=== PATIENT | female | born 1955 | race Caucasian/White ===

== ENCOUNTER → 2016-07-19 | Outpatient (CLI) | payer OTHER ==
[~2016-07-19] MED LIST: ASPI1TAB2 PO; CHOL1CHW10 PO; INSPMPHMLG; OPTIRAY 320 IV PRN; PRAV40TA2 PO
[2016-07-19 12:45] LABS: ISTAT CREATININE 0.6 mg/dl (0.6-1.3); ISTAT IONIZED CALCIUM 1.25 mmol/l (1.12-1.32)
--- NOTE | 2016-07-19 12:54 | DIAGNOSTIC IMAGING REPORT ---
CT OF THE CHEST WITH IV CONTRAST CLINICAL HISTORY: Pulmonary nodule. COMPARISON STUDY: Chest CT August 24, 2015. TECHNIQUE: Following IV administration of 92 mL of Optiray-320, helical axial images of the chest were obtained. Images were viewed in the axial, sagittal and coronal planes. IV contrast was administered without complication. CT DOSE: 176.41 mGycm FINDINGS: No enlarged axillary, mediastinal or hilar lymph nodes are present. The size of the heart is normal. There is no pericardial effusion. Central airways are patent. There is no consolidation to suggest pneumonia. Groundglass opacities reflect atelectasis. There is mild emphysema. Several pulmonary nodules are unchanged since exam of August 24, 2015 and include a 3 mm left lower lobe nodule shown image 199 of 271, a 3 mm left lower lobe nodule shown image 208 and a 4 mm perifissural nodule within the left upper lobe shown on image 148. There are no new nodules. Bony thorax and upper abdomen are unremarkable. There is a small hiatal hernia. IMPRESSION: 1. No change in several small pulmonary nodules since CT of August 24, 2015. These are likely benign but a follow up chest CT in one year to ensure stability is recommended. 2. Mild emphysema. Electronically signed by: Sam Pascual M.D. 07/19/2016 12:52 PM Dictated Date/Time: 07/19/2016 12:46 PM
== END | disposition home or self-care (01) ==
LOC: C.CTS 12:00
PROVIDERS: ATTEND Family Medicine
DX: R91.1 Solitary pulmonary nodule (principal)

== ENCOUNTER 2022-02-18 20:26 | Inpatient (IN) ==
[2022-02-18] MEDS ORDERED: ALBUT/IPRATROP 3MG/0.5MG NEB 3 ML VIAL NEB STA (21:03)
[2022-02-18] MEDS ORDERED: methylPREDNISolone 125 MG/2 ML VIAL IV STA (21:03)
--- NOTE | 2022-02-18 21:07 | Emergency Department Note ---
History of Present Illness General Chief complaint: Respiratory Problems Stated complaint: BAD COUGH,FEVER,SOB Time Seen by Provider: 02/18/22 20:54 History of Present Illness 66-year-old female presents to the ED with a chief complaint of cough that started last night. She also states that she started having shortness of breath last night. Denies any specific cold symptoms such as runny nose or fever but only a dry cough. She states that she does have some lung problems with regards to some chronic exertional dyspnea for the past 6 months. She was scheduled to have pulmonary function test tomorrow. The patient states that she quit smoking about 15 years ago. She smoked for 30 years. Denies any additional complaints this time. Home Medications Medication Instructions Recorded Confirmed Type ASPIRIN (PHIL ASPIRIN EC LOW DOSE) 81 mg PO DAILY ##0 08/19/12 History CHOLECALCIFEROL (VITAMIN D3) 2,000 inter.unit PO DAILY ##0 08/19/12 History PRAVASTATIN SODIUM 40 mg PO HS ##0 08/19/12 History Insulin Human Lispro (Insulin UD ##30 06/30/14 History Humalog Pump ) Allergies Allergy/AdvReac Type Severity Reaction Status Date / Time Penicillins Allergy Mild RASH Verified 08/24/15 11:57 lisinopril Allergy Unknown COUGH Verified 08/24/15 11:56 Past Med/Surg History Medical History COPD exacerbation Diabetes HTN (hypertension) Hyperlipidemia Ovarian cancer Pneumonia Surgical History Status post right rotator cuff repair Social History Smoking Status: Unknown if ever smoked Preferred Language: Vietnamese marital status: current occupational status: retired Feels Safe at Home: Yes Review of Systems A total of 10 systems reviewed and were otherwise negative Physical Exam Vital Signs Vital Signs - 24 hr 02/18/22 20:32 02/18/22 20:36 02/18/22 20:36 Temperature 36.9 C Temperature Source Temporal Artery Scan Pulse Rate 110 H Respiratory Rate 22 30 H Respiratory Effort / Characteristics Non-Labored Spontaneous Short of Breath SOB on Exertion Respiratory Depth Normal Blood Pressure 160/74 H Blood Pressure Mean 102 Pulse Oximetry 87 L 97 96 Oxygen Delivery Method Room Air Nasal Cannula Room Air Oxygen Flow Rate 2 Sepsis Recent Fever Within 48 Hours No Sepsis New/Unexplained Change in Mental Status N/A Sepsis Action Taken by Nursing No Action Required CONSTITUTIONAL/VITAL SIGNS: Reviewed / noted above. GENERAL: Non-toxic in appearance. INTEGUMENTARY: Warm, dry, and [place]. HEAD: Normocephalic. EYES: without scleral icterus or trauma. ENT/OROPHARYNX: clear and moist. LYMPHADENOPATHY/NECK: Is supple without lymphadenopathy or meningismus. RESPIRATORY: Diminished with some expiratory wheezes auscultation bilaterally. Mild increased work of breathing. CARDIOVASCULAR: Regular rate and rhythm. GI/ABDOMEN: Soft and nontender. No organomegaly or pulsatile mass. EXTREMITIES: Warm and well perfused. BACK: No CVA tenderness. NEUROLOGICAL: Intact without focal deficits. PSYCHIATRIC: normal affect. MUSCULOSKELETAL: Normally developed with good muscle tone. TRIAGE NURSING DOCUMENTATION REVIEWED. Course Administered Medications Discontinued Medications Albuterol (Albut/Ipratrop 3mg/0.5mg Neb 3 Ml Vial) 3 ml NEB NOW STA; Protocol Stop: 02/18/22 21:04 Last Admin: 02/18/22 21:23 Dose: 3 ml Documented By: CHARLY Methylprednisolone (Methylprednisolone 125 Mg/2 Ml Vial) 125 mg IV NOW STA Stop: 02/18/22 21:04 Last Admin: 02/18/22 21: Dose: 125 mg Documented By: CHARLY Medical Decision Making Differential Diagnosis The differential was considered includes acute myocardial infarction, acute coronary syndrome, myocarditis, pericarditis, pericardial effusions /tamponad, e sophageal perforation, pulmonary embolism, pneumonia, pneumothorax, cardiomyopathy, congestive heart, anemia , COPD/asthma exacerbation. Medical Records Attestation: I reviewed the patient's medical records. Home Medications Current Medication List: was personally reviewed by me Laboratory Data Attestation: I reviewed the patient's lab results. Result diagrams: 02/18/22 20:42 02/18/22 20:42 Lab Results 02/18/22 02/18/22 02/18/22 Range/Units 20:39 20:42 20:42 WBC 7.14 (4.8-10.8) K/ul RBC 4.81 (3.93-5.22) M/uL Hgb 13.9 (12.0-16.0) g/dl Hct 42.0 (34.1-44.9) % MCV 87.3 (80.0-100.0) fL MCH 28.9 (25.0-34.0) pg MCHC 33.1 (32.0-36.0) g/dL RDW Std Deviation 39.4 (36.4-46.3) fL RDW Coeff of Crystal 12.3 (11.5-14.5) % Plt Count 220 (130-400) K/uL MPV 9.7 (9.4-12.3) fL Immature Gran % (Auto) 0.4 % Neut % (Auto) 86.0 % Lymph % (Auto) 3.5 % [place] % (Auto) 6.7 % Eos % (Auto) 2.8 % Baso % (Auto) 0.6 % Neut # (Auto) 6.14 (1.4-6.5) K/uL Lymph # (Auto) 0.25 L (1.2-3.4) K/uL [place] # (Auto) 0.48 (0.24-0.82) K/uL Eos # (Auto) 0.20 (0-0.50) K/uL Baso # (Auto) 0.04 (0-0.2) K/uL Immature Gran # (Auto) 0.03 H (0.00-0.02) K/uL PT 10.4 (9.0-12.0) Seconds INR 1.0 (0.9-1.1) APTT 26.5 (21.0-31.0) Seconds PTT Ratio 1.0 Sodium (136-145) mmol/L Potassium (3.5-5.1) mmol/L Chloride (98-107) mmol/L Carbon Dioxide (21-32) mmol/L Anion Gap (3-11) BUN (6-23) mg/dl Creatinine (0.6-1.2) mg/dl Est Cr Clr Drug Dosing ml/min Est GFR ( Amer) ml/min Est GFR (Non-Af Amer) ml/min BUN/Creatinine Ratio (10-20) Glucose (70-99(Fasting)) mg/dl Calcium (8.5-10.1) mg/dl Magnesium (1.7-2.4) mg/dl Total Bilirubin (0.2-1.0) mg/dl AST (13-39) U/L ALT (7-52) U/L Alkaline Phosphatase (34-104) U/L Troponin I High Sens (0-14) pg/ml Total Protein (6.0-8.3) gm/dl Albumin (3.4-5.0) gm/dl Globulin (2.5-4.0) gm/dl Albumin/Globulin Ratio (0.9-2) SARS-CoV-2 (PCR) NEGATIVE (Negative) Influenza Type A (PCR) Positive A* (Neg) Influenza Type B (PCR) Negative (Neg) RSV (RT-PCR) Negative (Neg) 02/18/22 Range/Units 20:42 WBC (4.8-10.8) K/ul RBC (3.93-5.22) M/uL Hgb (12.0-16.0) g/dl Hct (34.1-44.9) % MCV (80.0-100.0) fL MCH (25.0-34.0) pg MCHC (32.0-36.0) g/dL RDW Std Deviation (36.4-46.3) fL RDW Coeff of Crystal (11.5-14.5) % Plt Count (130-400) K/uL MPV (9.4-12.3) fL Immature Gran % (Auto) % Neut % (Auto) % Lymph % (Auto) % [place] % (Auto) % Eos % (Auto) % Baso % (Auto) % Neut # (Auto) (1.4-6.5) K/uL Lymph # (Auto) (1.2-3.4) K/uL [place] # (Auto) (0.24-0.82) K/uL Eos # (Auto) (0-0.50) K/uL Baso # (Auto) (0-0.2) K/uL Immature Gran # (Auto) (0.00-0.02) K/uL PT (9.0-12.0) Seconds INR (0.9-1.1) APTT (21.0-31.0) Seconds PTT Ratio Sodium 138 (136-145) mmol/L Potassium 4.0 (3.5-5.1) mmol/L Chloride 103 (98-107) mmol/L Carbon Dioxide 26 (21-32) mmol/L Anion Gap 9 (3-11) BUN 18 (6-23) mg/dl Creatinine 0.80 (0.6-1.2) mg/dl Est Cr Clr Drug Dosing 69.0 ml/min Est GFR ( Amer) 87.8 ml/min Est GFR (Non-Af Amer) 75.8 ml/min BUN/Creatinine Ratio 22.5 H (10-20) Glucose 123 H (70-99(Fasting)) mg/dl Calcium 9.3 (8.5-10.1) mg/dl Magnesium 1.6 L (1.7-2.4) mg/dl Total Bilirubin 0.4 (0.2-1.0) mg/dl AST 28 (13-39) U/L ALT 35 (7-52) U/L Alkaline Phosphatase 132 H (34-104) U/L Troponin I High Sens 5.1 (0-14) pg/ml Total Protein 7.1 (6.0-8.3) gm/dl Albumin 4.1 (3.4-5.0) gm/dl Globulin 3.0 (2.5-4.0) gm/dl Albumin/Globulin Ratio 1.4 (0.9-2) SARS-CoV-2 (PCR) (Negative) Influenza Type A (PCR) (Neg) Influenza Type B (PCR) (Neg) RSV (RT-PCR) (Neg) Imaging Data My Impression: Chest x-ray: Per my interpretation there is a possible left lower lobe infiltrate. ECG Data Attestation: I personally reviewed and interpreted this ECG as follows: Additional Comments: Twelve-lead EKG: Per my interpretation shows a sinus tachycardia rate of 108. No ST elevation. No PVCs. Normal QTC. MDM Narrative 66-year-old female presents with a chief complaint of a cough and shortness of breath. On her exam her lungs are diminished with some end expiratory wheezing. Her sats were 87% on room air. She does not use oxygen at home. She did have pulmonary function test scheduled for tomorrow due to some exertional dyspnea that is been going on for 6 months. Blood pressure is otherwise elevated. Her heart rate was tachycardic with a heart rate of 110. Afebrile. There is a possible left lower lobe infiltrate on his chest x-ray. EKG shows a sinus rhythm. CBC and chemistry panel was unremarkable. Troponin is normal. Influenza A test is positive. The patient was treated with IV Solu-Medrol as well as a DuoNeb treatment x2. She was empirically given some IV cefepime. She requires 2 L of oxygen to maintain saturations above 88%. She will be seen by the hospitalist for further evaluation and care. Impression & Plan Acute exacerbation of COPD with asthma, Influenza A, Left lower lobe pulmonary infiltrate Discharge Plan Visit Data Chief Complaint: Respiratory Problems Stated Complaint: BAD COUGH,FEVER,SOB ED Provider: Reji Leon Discharge Problem: Acute exacerbation of COPD with asthma, Influenza A, Left lower lobe pulmonary infiltrate Patient Disposition: Being Evaluated by Hospitalist Forms Stand Alone Forms: [employer] Prescriptions Prescriptions: No Action CHOLECALCIFEROL (VITAMIN D3) 1,000 UNIT CHW 2,000 inter.unit PO DAILY Qty: 0 ASPIRIN (PHIL ASPIRIN EC LOW DOSE) 81 MG tablet 81 mg PO DAILY Qty: 0 PRAVASTATIN SODIUM 40 MG tablet 40 mg PO HS Qty: 0 Insulin Human Lispro (Insulin Humalog Pump ) PUMP UD Qty: 30 Referrals Referrals: Isabela Ayers D.O. [Primary Care Provider] -
[2022-02-18 21:22] LABS: Basophils # (auto) 0.04 K/uL (0-0.2); Basophils % (auto) 0.6 %; Eosinophils % (auto) 2.8 %; Hemoglobin 13.9 g/dl (12.0-16.0); Immature Granulocytes # (auto) 0.03 K/uL (0.00-0.02); Immature Granulocytes % (auto) 0.4 %; Lymphocytes # (auto) 0.25 K/uL (1.2-3.4); Lymphocytes % (auto) 3.5 %; Mean Corpuscular Hemoglobin 28.9 pg (25.0-34.0); Mean Corpuscular Hgb Conc 33.1 g/dL (32.0-36.0); Mean Corpuscular Volume 87.3 fL (80.0-100.0); Mean Platelet Volume 9.7 fL (9.4-12.3); Monocytes # (auto) 0.48 K/uL (0.24-0.82); Monocytes % (auto) 6.7 %; Neutrophils # (auto) 6.14 K/uL (1.4-6.5); Platelet Count 220 K/uL (130-400); RDW Coefficient of Variation 12.3 % (11.5-14.5); RDW Standard Deviation 39.4 fL (36.4-46.3); Red Blood Count 4.81 M/uL (3.93-5.22); White Blood Count 7.14 K/ul (4.8-10.8)
[2022-02-18 21:28] LABS: Albumin Globulin Ratio 1.4 (0.9-2); Albumin Level 4.1 gm/dl (3.4-5.0); BUN Creatinine Ratio 22.5 (10-20); Bilirubin,Total 0.4 mg/dl (0.2-1.0); Calcium 9.3 mg/dl (8.5-10.1); Est GFR (African American) 87.8 ml/min; Est GFR (Non-African American) 75.8 ml/min; Magnesium 1.6 mg/dl (1.7-2.4); Total Protein 7.1 gm/dl (6.0-8.3)
[2022-02-18 21:30] LABS: Troponin I High Sensitivity 5.1 pg/ml (0-14)
[2022-02-18 21:37] LABS: Partial Thromboplastin Time 26.5 Seconds (21.0-31.0); Prothrombin Time 10.4 Seconds (9.0-12.0)
[2022-02-18 21:42] LABS: Influenza B virus by PCR Negative (Neg); RSV by PCR Negative (Neg); SARS CoV2 RNA(COVID-19) Ceph NEGATIVE (Negative)
[2022-02-18 21:52] LABS: Influenza A virus by PCR Positive (Neg)
[2022-02-19] MEDS ORDERED: ALBUT/IPRATROP 3MG/0.5MG NEB 3 ML VIAL NEB STA (00:49)
[2022-02-19] MEDS ORDERED: CEFEPIME 2,000 MG/20 ML VIAL IV STA (00:50)
[2022-02-19] MEDS ORDERED: OSELTAMIVIR PHOSPHATE 75 MG CAP PO STA (01:30)
--- NOTE | 2022-02-19 01:31 | History & Physical Report ---
Date of Service February 19, 2022 Assessment & Plan (1) Influenza A: Plan: Influenza A/COPD exacerbation/with hypoxia- Received the following from the ED: Solu-Medrol 125 mg IV, DuoNeb's x2 and cefepime 2 g IV Will admit the patient on the following: Pulmicort Respules 0.5 mg inhaled twice daily, Duonebs every 4 hours while awake and every 2 hours when necessary., Tamiflu 75 mg p.o. twice daily for 5-day course, guaifenesin extended release 1200 mg p.o. twice daily No need for further antibiotics Nasal cannula oxygen, titrate to keep pulse ox 90-92% (2) COPD exacerbation: Plan: See above (3) Hyperlipidemia: Plan: Continue atorvastatin 80 mg at bedtime (4) Diabetes: Plan: The patient will continue to use her own insulin pump and Dexcom unit, but will notify nursing of any changes that she makes Check hemoglobin A1c Continue aspirin (5) Bladder spasms: Plan: Continue Myrbetriq History of Present Illness Chief Complaint: The patient presents to the emergency department after developing a cough and shortness of breath after attending a basketball game last evening. Primary Care Provider: Isabela Ayers The patient is a 66-year-old female with a past medical history including COPD, ovarian cancer, hyperlipidemia, diabetes mellitus, hypertension, pulmonary nodule. She attended a basketball game last evening, and reports developing a nonproductive irritating cough, with shortness of breath and dyspnea on exertion. Work-up in the emergency department included mild hypoxia of 80% on room air, improving to 94% on 2 L nasal cannula. Chest x-ray showed no acute findings. Laboratory work-up included a positive influenza A, glucose of 123, and magnesium of 1.6. From the emergency department, the patient received the following: Solu-Medrol 125 mg IV, DuoNeb x2, and cefepime 2 g IV. I have given the patient Tamiflu 75 mg p.o. in the ED Allergies Allergy/AdvReac Type Severity Reaction Status Date / Time Penicillins Allergy Mild RASH Verified 02/19/22 01:46 lisinopril Allergy Unknown COUGH Verified 02/19/22 01:46 Home Medications Medication Instructions Recorded Confirmed Type Myrbetriq 1 tab PO QAM 02/19/22 02/19/22 History aspirin 81 mg tablet,delayed 81 mg PO QAM 02/19/22 02/19/22 History release atorvastatin 80 mg tablet 80 mg PO HS 02/19/22 02/19/22 History cholecalciferol (vitamin D3) 125 125 mcg PO QAM 02/19/22 02/19/22 History mcg (5,000 unit) tablet (Vitamin D3) insulin aspart U-100 100 unit/mL 1 sliding scale dose subcut 02/19/22 02/19/22 History subcutaneous solution (Novolog USEASDIRECTD U-100 Insulin aspart) zinc acetate 50 mg (zinc) capsule 50 mg PO QAM 02/19/22 02/19/22 History Past Med/Surg History Medical History (Updated 02/19/22 @ 03:15 by Caleb Escobar MD) COPD exacerbation Diabetes HTN (hypertension) Hyperlipidemia Ovarian cancer Pneumonia Surgical History Status post right rotator cuff repair Social History Smoking Status: Unknown if ever smoked Preferred Language: Faroese marital status: current occupational status: retired Feels Safe at Home: Yes Review of Systems Review of Systems: The patient denies chest pain, palpitations, lower extremity swelling, sore throat, fevers, chills, sweats, weight change, fatigue, nausea, vomiting, diarrhea , constipation, abdominal pain, pelvic pain, blood in urine or stool, dysuria, urinary frequency or urgency, lightheadedness, dizziness, headache, memory loss, loss of consciousness, rash, abnormal bruising or bleeding, imbalance, focal or generalized weakness, numbness or tingling in arms or legs, generalized arthralgias or myalgias, back or neck pain, or night sweats. The review of systems is otherwise negative other than for that already noted above, and at least 10 systems have been reviewed. Physical Exam Physical Exam: The patient is awake, alert and oriented 3, well developed and well nourished, normocephalic and atraumatic, lying in bed and in no acute distress. HEENT--PERRL, EOMI, mucous membranes and oropharynx normal. Neck--supple. No JVD. No bruits. Thyroid normal, trachea midline, no adenopathy. Heart--normal S1 and S2. No murmurs, rubs or gallops. Lungs--clear bilaterally, no respiratory distress, no accessory muscle use. Abdomen--normal bowel sounds and soft. Nontender. Nondistended, no hernias or masses, no organomegaly. Extremities--no cyanosis or clubbing. No edema. Dermatologic--normal skin turgor, normal color, no abnormal lymph nodes, no rash. Neurologic--cranial nerves II through XII grossly intact. Rheumatologic--normal range of motion. Psychiatric--normal affect. Results & Data Results & Data ([facility]) Vital Signs (Past 12 Hours) Vital Signs Temp Pulse Resp BP Pulse Ox O2 Del Method O2 Flow Rate 02/18/22 20:36 30 H 96 Room Air 02/18/22 20:36 97 Nasal Cannula 2 02/18/22 20:32 36.9 C 110 H 22 160/74 H 87 L Room Air Laboratory Results Laboratory Results WBC 7.14 K/ul (4.8-10.8) 02/18/22 20:42 RBC 4.81 M/uL (3.93-5.22) 02/18/22 20:42 Hgb 13.9 g/dl (12.0-16.0) 02/18/22 20:42 Hct 42.0 % (34.1-44.9) 02/18/22 20:42 MCV 87.3 fL (80.0-100.0) 02/18/22 20:42 MCH 28.9 pg (25.0-34.0) 02/18/22 20:42 MCHC 33.1 g/dL (32.0-36.0) 02/18/22 20:42 RDW Std Deviation 39.4 fL (36.4-46.3) 02/18/22 20:42 RDW Coeff of Crystal 12.3 % (11.5-14.5) 02/18/22 20:42 Plt Count 220 K/uL (130-400) 02/18/22 20:42 MPV 9.7 fL (9.4-12.3) 02/18/22 20:42 Immature Gran % (Auto) 0.4 % 02/18/22:42 Neut % (Auto) 86.0 % 02/18/22 20:42 Lymph % (Auto) 3.5 % 02/18/22 20:42 [place] % (Auto) 6.7 % 02/18/22 20:42 Eos % (Auto) 2.8 % 02/18/22 20:42 Baso % (Auto) 0.6 % 02/18/22 20:42 Neut # (Auto) 6.14 K/uL (1.4-6.5) 02/18/22 20:42 Lymph # (Auto) 0.25 K/uL (1.2-3.4) L 02/18/22 20:42 [place] # (Auto) 0.48 K/uL (0.24-0.82) 02/18/22 20:42 Eos # (Auto) 0.20 K/uL (0-0.50) 02/18/22 20:42 Baso # (Auto) 0.04 K/uL (0-0.2) 02/18/22 20:42 Immature Gran # (Auto) 0.03 K/uL (0.00-0.02) H 02/18/22 20:42 PT 10.4 Seconds (9.0-12.0) 02/18/22 20:42 INR 1.0 (0.9-1.1) 02/18/22 20:42 APTT 26.5 Seconds (21.0-31.0) 02/18/22 20:42 PTT Ratio 1.0 02/18/22 20:42 Sodium 138 mmol/L (136-145) 02/18/22 20:42 Potassium 4.0 mmol/L (3.5-5.1) 02/18/22 20:42 Chloride 103 mmol/L (98-107) 02/18/22 20:42 Carbon Dioxide 26 mmol/L (21-32) 02/18/22 20:42 Anion Gap 9 (3-11) 02/18/22 20:42 BUN 18 mg/dl (6-23) 02/18/22 20:42 Creatinine 0.80 mg/dl (0.6-1.2) 02/18/22 20:42 Est Cr Clr Drug Dosing 69.0 ml/min 02/18/22 20:42 Est GFR ( Amer) 87.8 ml/min 02/18/22 20:42 Est GFR (Non-Af Amer) 75.8 ml/min 02/18/22 20:42 BUN/Creatinine Ratio 22.5 (10-20) H 02/18/22 20:42 Glucose 123 mg/dl (70-99(Fasting)) H 02/18/22 20:42 Calcium 9.3 mg/dl (8.5-10.1) 02/18/22 20:42 Magnesium 1.6 mg/dl (1.7-2.4) L 02/18/22 20:42 Total Bilirubin 0.4 mg/dl (0.2-1.0) 02/18/22 20:42 AST 28 U/L (13-39) 02/18/22 20:42 ALT 35 U/L (7-52) 02/18/22 20:42 Alkaline Phosphatase 132 U/L (34-104) H 02/18/22 20:42 Troponin I High Sens 5.1 pg/ml (0-14) 02/18/22 20:42 Total Protein 7.1 gm/dl (6.0-8.3) 02/18/22 20:42 Albumin 4.1 gm/dl (3.4-5.0) 02/18/22 20:42 Globulin 3.0 gm/dl (2.5-4.0) 02/18/22 20:42 Albumin/Globulin Ratio 1.4 (0.9-2) 02/18/22 20:42 SARS-CoV-2 (PCR) NEGATIVE (Negative) 02/18/22 20:39 Influenza Type A (PCR) Positive (Neg) A* 02/18/22 20:39 Influenza Type B (PCR) Negative (Neg) 02/18/22 20:39 RSV (RT-PCR) Negative (Neg) 02/18/22 20:39 Code Status & VTE Plan Code Status Full code VTE Prophylaxis Plan VTE Prophylaxis will be ordered: Yes
[2022-02-19] MEDS ORDERED: GLUCOSE 40% GEL 15 GM TUBE PO PRN (02:47)
[2022-02-19] MEDS ORDERED: ONDANSETRON INJ 2 MG/ML 2 ML VIAL IV PRN (02:47)
[2022-02-19] MEDS ORDERED: GLUCOSE 10 TAB/TUBE PO PRN (02:47)
[2022-02-19] MEDS ORDERED: ACETAMINOPHEN 325 MG TAB PO PRN (02:47)
[2022-02-19] MEDS ORDERED: DEXTROSE 50% 50 ML SYRINGE IV PRN (02:47)
[2022-02-19] MEDS ORDERED: GLUCAGON FOR INJ 1 MG VIAL SQ PRN (02:47)
[2022-02-19] MEDS ORDERED: CARBOHYDRATES FOR HYPOGLYCEMIA PO PRN (02:47)
--- NOTE | 2022-02-19 03:16 | Billing Data ---
Date of Service February 19, 2022 Coding Level of Care Code INT OBSERVATION CARE 70M LVL 3
[2022-02-19 07:09] LABS: Hemoglobin 13.4 g/dl (12.0-16.0); Mean Corpuscular Hemoglobin 28.7 pg (25.0-34.0); Mean Corpuscular Hgb Conc 32.7 g/dL (32.0-36.0); Mean Corpuscular Volume 87.8 fL (80.0-100.0); Mean Platelet Volume 9.6 fL (9.4-12.3); Platelet Count 204 K/uL (130-400); RDW Coefficient of Variation 12.3 % (11.5-14.5); RDW Standard Deviation 39.6 fL (36.4-46.3); Red Blood Count 4.67 M/uL (3.93-5.22); White Blood Count 5.54 K/ul (4.8-10.8)
[2022-02-19] MEDS: ALBUT/IPRATROP 3MG/0.5MG NEB 3 ML VIAL NEB SCH ×4 (07:26→19:34)
[2022-02-19] MEDS: BUDESONIDE 0.5 MG/2 ML VIAL (PULMICORT) NEB SCH ×2 (07:26→19:34)
[2022-02-19 07:33] LABS: Basophils # (auto) 0.01 K/uL (0-0.2); Basophils % (auto) 0.2 %; Immature Granulocytes # (auto) 0.02 K/uL (0.00-0.02); Immature Granulocytes % (auto) 0.4 %; Lymphocytes # (auto) 0.23 K/uL (1.2-3.4); Lymphocytes % (auto) 4.2 %; Monocytes # (auto) 0.08 K/uL (0.24-0.82); Monocytes % (auto) 1.4 %; Neutrophils % (auto) 93.8 %
[2022-02-19 07:52] LABS: Albumin Globulin Ratio 1.4 (0.9-2); Albumin Level 4.1 gm/dl (3.4-5.0); BUN Creatinine Ratio 22.2 (10-20); Bilirubin,Total 0.4 mg/dl (0.2-1.0); Creatinine Clr Calc Pharmacy 67.2 ml/min; Est GFR (African American) 86.5 ml/min; Est GFR (Non-African American) 74.6 ml/min; Potassium 3.7 mmol/L (3.5-5.1); Total Protein 7.1 gm/dl (6.0-8.3)
--- NOTE | 2022-02-19 08:02 | XRay Report ---
XR chest 1V portable CLINICAL HISTORY: SOB TECHNIQUE: Single frontal radiograph of the chest was obtained. Comparison: Comparison is made to rib series 08/24/2015 FINDINGS: No lines and tubes are seen. Cardiomegaly is noted. Reticular interstitial opacities are seen. No sadie dence of pleural effusion or pneumothorax. IMPRESSION: No acute chest disease. ACT 112: Negative or not required by law. Electronically signed by: Donavon Vásquez M.D. 02/19/2022 8:01 AM
[2022-02-19 08:30] LABS: Estimated Average Glucose 183 mg/dl
[2022-02-19] MEDS: ASPIRIN 81 MG ECTAB PO SCH (08:48)
[2022-02-19] MEDS: CHOLECALCIFEROL 1,000 UNITS 25 MCG TAB PO SCH (08:48)
[2022-02-19] MEDS: guaiFENesin 600 MG TABCR PO SCH ×2 (08:48→20:18)
[2022-02-19] MEDS: MAGNESIUM SULFATE / D5W 1 GM/100 ML BAG IV SCH ×2 (11:51→14:15)
[2022-02-19] MEDS: OSELTAMIVIR PHOSPHATE 75 MG CAP PO SCH ×2 (11:51→20:19)
--- NOTE | 2022-02-19 16:44 | Electrocardiogram Report ---
Test Reason : Blood Pressure : / mmHG Vent. Rate : 108 BPM Atrial Rate : 108 BPM P-R Int : 150 ms QRS Dur : 086 ms QT Int : 320 ms P-R-T Axes : 068 077 027 degrees QTc Int : 428 ms Sinus tachycardia Nonspecific ST and T wave abnormality Abnormal ECG When compared with ECG of 24-AUG-2015 11:59, Nonspecific T wave abnormality now evident in Anterior leads Confirmed by Ricardo Sheridan ([id number]) on 02/19/2022 4:44:00 PM Referred By: REFERRED SELF Confirmed By:Ricardo Sheridan
[2022-02-19] MEDS: ENOXAPARIN INJ 40 MG/0.4 ML SYR SQ SCH ×2 (17:01→18:28)
[2022-02-19] MEDS: PRAVASTATIN SOD 40 MG TAB PO SCH (20:18)
[2022-02-19] MEDS: methylPREDNISolone 40 MG in SYRINGE 0 ML IV SCH (20:19)
--- NOTE | 2022-02-19 20:39 | Hospitalist Progress Note ---
Date of Service February 19, 2022 Assessment & Plan (1) Influenza A: Plan: cont tamiflu 75mg BID x 5 days cont supportive care - bronchodilators, steroids, etc. no evidence of complicating bacterial process cont droplet precautions (2) Acute respiratory failure with hypoxia: Plan: 2nd to #1, #3 had documented O2 sats <88% at presentation, RR>25, very tachycardic to >100 stable on 2 L NC O2 this afternoon (3) COPD exacerbation: Plan: 2nd to fluA infection s/p solumedrol in ER overnight will cont solumedrol --> 40mg IV BID add mucinex cont flutter valve and pulmonary toilet (4) Hyperlipidemia: Plan: Continue atorvastatin 80 mg at bedtime (5) Diabetes: Plan: The patient will continue to use her own insulin pump and Dexcom unit, but will notify nursing of any changes that she makes hemoglobin A1c 8% (6) Bladder spasms: Plan: Continue Myrbetriq (7) Hypomagnesemia: Plan: replace IV mag repeat mag level am Plan DVT proph - lovenox 40 daily updated at bedside Admission and Anticipated Discharge Date Admission Date: February 19, 2022 Subjective patient feeling much better than yesterday still with cough ambulating, however, is not causing dyspnea she feels she can take larger breaths today denies fevers or chills did not have flu shot this year Physical Exam Physical Exam: gen - NAD mouth - MMM neck - no JVD heart - tachy, RR, s1 s2, no murmur lungs - scattered endexp wheezes b/l; good airation; no rales abd - soft NT ND BS+ ext - no edema Results & Data Results & Data ([facility]) Vital Signs (Past 12 Hours) Vital Signs Temp Pulse Resp BP Pulse Ox O2 Del Method O2 Flow Rate 02/19/22 19:50 37.4 C 124 H 18 144/68 H 98 Room Air 02/19/22 19:34 100 H 18 93 Nasal Cannula 2 02/19/22 15:52 37.1 C 99 H 17 120/57 L 94 Room Air 02/19/22 15:47 100 H 18 95 Nasal Cannula 2 02/19/22 12:18 Nasal Cannula 2 02/19/22 12:07 37.4 C 117 H 17 109/65 95 Room Air 02/19/22 10:51 107 H 18 94 Nasal Cannula 2 Laboratory Results Laboratory Results - last 24 hr 02/18/22 02/18/22 02/18/22 20:39 20:42 20:42 WBC 7.14 RBC 4.81 Hgb 13.9 Hct 42.0 MCV 87.3 MCH 28.9 MCHC 33.1 RDW Std Deviation 39.4 RDW Coeff of Crystal 12.3 Plt Count 220 MPV 9.7 Immature Gran % (Auto) 0.4 Neut % (Auto) 86.0 Lymph % (Auto) 3.5 [place] % (Auto) 6.7 Eos % (Auto) 2.8 Baso % (Auto) 0.6 Neut # (Auto) 6.14 Lymph # (Auto) 0.25 L [place] # (Auto) 0.48 Eos # (Auto) 0.20 Baso # (Auto) 0.04 Immature Gran # (Auto) 0.03 H PT 10.4 INR 1.0 APTT 26.5 PTT Ratio 1.0 Sodium Potassium Chloride Carbon Dioxide Anion Gap BUN Creatinine Est Cr Clr Drug Dosing Est GFR ( Amer) Est GFR (Non-Af Amer) BUN/Creatinine Ratio Glucose POC Glucose Estimat Average Glucose Hemoglobin A1c Calcium Magnesium Total Bilirubin AST ALT Alkaline Phosphatase Troponin I High Sens Total Protein Albumin Globulin Albumin/Globulin Ratio SARS-CoV-2 (PCR) NEGATIVE Hepatitis C Ab (EIA) Hep C Ab Signal/Cutoff Influenza Type A (PCR) Positive A* Influenza Type B (PCR) Negative RSV (RT-PCR) Negative 02/18/22 02/19/22 02/19/22 20:42 03:15 06:37 WBC 5.54 RBC 4.67 Hgb 13.4 Hct 41.0 MCV 87.8 MCH 28.7 MCHC 32.7 RDW Std Deviation 39.6 RDW Coeff of Crystal 12.3 Plt Count 204 MPV 9.6 Immature Gran % (Auto) 0.4 Neut % (Auto) 93.8 Lymph % (Auto) 4.2 [place] % (Auto) 1.4 Eos % (Auto) 0.0 Baso % (Auto) 0.2 Neut # (Auto) 5.20 Lymph # (Auto) 0.23 L [place] # (Auto) 0.08 L Eos # (Auto) 0.00 Baso # (Auto) 0.01 Immature Gran # (Auto) 0.02 PT INR APTT PTT Ratio Sodium 138 Potassium 4.0 Chloride 103 Carbon Dioxide 26 Anion Gap 9 BUN 18 Creatinine 0.80 Est Cr Clr Drug Dosing 69.0 Est GFR ( Amer) 87.8 Est GFR (Non-Af Amer) 75.8 BUN/Creatinine Ratio 22.5 H Glucose 123 H POC Glucose 251 H Estimat Average Glucose Hemoglobin A1c Calcium 9.3 Magnesium 1.6 L Total Bilirubin 0.4 AST 28 ALT 35 Alkaline Phosphatase 132 H Troponin I High Sens 5.1 Total Protein 7.1 Albumin 4.1 Globulin 3.0 Albumin/Globulin Ratio 1.4 SARS-CoV-2 (PCR) Hepatitis C Ab (EIA) Hep C Ab Signal/Cutoff Influenza Type A (PCR) Influenza Type B (PCR) RSV (RT-PCR) 02/19/22 02/19/22 02/19/22 06:37 06:37 06:37 WBC RBC Hgb Hct MCV MCH MCHC RDW Std Deviation RDW Coeff of Crystal Plt Count MPV Immature Gran % (Auto) Neut % (Auto) Lymph % (Auto) [place] % (Auto) Eos % (Auto) Baso % (Auto) Neut # (Auto) Lymph # (Auto) [place] # (Auto) Eos # (Auto) Baso # (Auto) Immature Gran # (Auto) PT INR APTT PTT Ratio Sodium 137 Potassium 3.7 Chloride 104 Carbon Dioxide 24 Anion Gap 9 BUN 18 Creatinine 0.81 Est Cr Clr Drug Dosing 67.2 Est GFR ( Amer) 86.5 Est GFR (Non-Af Amer) 74.6 BUN/Creatinine Ratio 22.2 H Glucose 167 H POC Glucose Estimat Average Glucose 183 Hemoglobin A1c 8.0 H Calcium 9.0 Magnesium Total Bilirubin 0.4 AST 35 ALT 42 Alkaline Phosphatase 127 H Troponin I High Sens Total Protein 7.1 Albumin 4.1 Globulin 3.0 Albumin/Globulin Ratio 1.4 SARS-CoV-2 (PCR) Hepatitis C Ab (EIA) Pending Hep C Ab Signal/Cutoff Pending Influenza Type A (PCR) Influenza Type B (PCR) RSV (RT-PCR) 02/19/22 07:46 WBC RBC Hgb Hct MCV MCH MCHC RDW Std Deviation RDW Coeff of Crystal Plt Count MPV Immature Gran % (Auto) Neut % (Auto) Lymph % (Auto) [place] % (Auto) Eos % (Auto) Baso % (Auto) Neut # (Auto) Lymph # (Auto) [place] # (Auto) Eos # (Auto) Baso # (Auto) Immature Gran # (Auto) PT INR APTT PTT Ratio Sodium Potassium Chloride Carbon Dioxide Anion Gap BUN Creatinine Est Cr Clr Drug Dosing Est GFR ( Amer) Est GFR (Non-Af Amer) BUN/Creatinine Ratio Glucose POC Glucose 133 H Estimat Average Glucose Hemoglobin A1c Calcium Magnesium Total Bilirubin AST ALT Alkaline Phosphatase Troponin I High Sens Total Protein Albumin Globulin Albumin/Globulin Ratio SARS-CoV-2 (PCR) Hepatitis C Ab (EIA) Hep C Ab Signal/Cutoff Influenza Type A (PCR) Influenza Type B (PCR) RSV (RT-PCR) PG Care Time/CCT Total # of Minutes Spent Total Time Spent with Patient: Total time spent is greater than 50% in coordination of care (as documented) at patient's floor/unit and/or counseling patient: Coding Level of Care Code None Diagnoses Influenza A J10.1 Acute respiratory failure with hypoxia J96.01 COPD exacerbation J44.1 Hyperlipidemia E78.5 Diabetes E11.9 Bladder spasms N32.89 Hypomagnesemia E83.42
[2022-02-20] MEDS: ALBUT/IPRATROP 3MG/0.5MG NEB 3 ML VIAL NEB SCH ×4 (07:26→19:16)
[2022-02-20] MEDS: BUDESONIDE 0.5 MG/2 ML VIAL (PULMICORT) NEB SCH ×2 (07:26→19:16)
[2022-02-20 07:44] LABS: Calcium 8.2 mg/dl (8.5-10.1); Creatinine Clr Calc Pharmacy 62.6 ml/min; Est GFR (African American) 79.3 ml/min; Est GFR (Non-African American) 68.5 ml/min; Magnesium 2.1 mg/dl (1.7-2.4); Potassium 4.6 mmol/L (3.5-5.1)
[2022-02-20] MEDS: ASPIRIN 81 MG ECTAB PO SCH (08:13)
[2022-02-20] MEDS: CHOLECALCIFEROL 1,000 UNITS 25 MCG TAB PO SCH (08:13)
[2022-02-20] MEDS: OSELTAMIVIR PHOSPHATE 75 MG CAP PO SCH ×2 (08:13→19:59)
[2022-02-20] MEDS: guaiFENesin 600 MG TABCR PO SCH ×2 (08:13→19:59)
[2022-02-20] MEDS: ENOXAPARIN INJ 40 MG/0.4 ML SYR SQ SCH (08:14)
[2022-02-20] MEDS: methylPREDNISolone 40 MG in SYRINGE 0 ML IV SCH ×2 (09:37→19:59)
[2022-02-20] MEDS ORDERED: PANTOprazole 40 MG TAB PO STA (17:25)
--- NOTE | 2022-02-20 18:25 | XRay Report ---
XR chest 2V PA/lateral CLINICAL HISTORY: fluA infection; LLL rales; pneumonia LLL? COMPARISON STUDY: Chest radiograph February 18, 2022. Chest CT July 19, 2016. FINDINGS: Lung volumes are normal. No pneumothorax or pleural effusion is present. There is no consol idation to suggest pneumonia. Linear bibasilar opacities reflect atelectasis or scarring. Mild cardio megaly is noted. Appearance of the chest is unchanged. IMPRESSION: No acute cardiopulmonary findings. ACT 112: Negative or not required by law. Electronically signed by: Sam Pascual M.D. 02/20/2022 6:24 PM
[2022-02-20] MEDS: PRAVASTATIN SOD 40 MG TAB PO SCH (19:59)
--- NOTE | 2022-02-20 20:06 | Hospitalist Progress Note ---
Date of Service February 20, 2022 Assessment & Plan (1) Influenza A: Plan: cont tamiflu 75mg BID x 5 days -- day #2 of such she is clinically improved today cont supportive care - bronchodilators, steroids, etc. no evidence of complicating bacterial process on cxr today cont droplet precautions (2) Acute respiratory failure with hypoxia: Plan: 2nd to #1, #3 had documented O2 sats <88% at presentation, RR>25, very tachycardic to >100 at rest O2 has been weaned off; but sats were 87-89% with walking keep 1 more day for IV steroids re-eval ambulatory O2 needed tomorrow (3) COPD exacerbation: Plan: 2nd to fluA infection improved cont solumedrol 40mg IV BID cont scheduled nebs qid cont flutter valve and pulmonary toilet see above re: low o2 sats w/walking keep overnight; re-eval tomorrow (4) Hyperlipidemia: Plan: Continue atorvastatin 80 mg at bedtime (5) Diabetes: Plan: The patient will continue to use her own insulin pump and Dexcom unit Adequate control at this time hemoglobin A1c 8% (6) Bladder spasms: Plan: Continue Myrbetriq (7) Hypomagnesemia: Plan: replaced resolved (8) Sinus tachycardia: Plan: 2nd to #1, #2, #3?? other? plan for echo; check LV function, PA pressure, etc (9) HTN (hypertension): Plan: chart lists this as dx, but not on meds at home most BPs are 120s and 130s trend (10) GERD (gastroesophageal reflux disease): Plan: PPI Plan DVT proph - lovenox 40 daily updated at bedside change observation to full admission status home tomorrow? Admission and Anticipated Discharge Date Admission Date: February 20, 2022 Subjective patient feeling "much better" cough, congestion, wheezing - all improved eating well low-grade fever last pm but none today tele - sinus tach, with rates 120-130 at peak I had staff walk patient in hallway - desatted to 87% and mainly stayed 88-89% HR stayed about 120 with walking patient reports having quit smoking early Review of Systems Review of Systems: gen - fevers last pm, none today; fatigue resolved cv - no cp,no tightness pulm - minimal sputum, no hemoptysis GI - no N/V Physical Exam Physical Exam: gen - NAD, looks good today mouth - MMM neck - no JVD heart - tachy, RR, s1 s2, no murmur lungs - scattered endexp wheezes b/l but improved from prior exam; good aira tion; minimal dry rales L base abd - soft NT ND BS+ ext - no edema, pulses 2+ b/l Results & Data Results & Data ([facility]) Vital Signs (Past 12 Hours) Vital Signs Temp Pulse Pulse Resp BP BP Pulse Ox 02/20/22 19:57 37.1 C 124 H 14 126/77 91 02/20/22 19:28 02/20/22 19:25 102 H 18 90 02/20/22 15:52 95 H 02/20/22 15:40 36.8 C 94 H 18 143/74 H 92 02/20/22 15:30 95 H 18 95 02/20/22 12:02 36.7 C 95 H 19 131/69 90 02/20/22 11:15 95 H 17 90 02/20/22 10:27 O2 Del Method 02/20/22 19:57 Room Air 02/20/22 19:28 Room Air 02/20/22 19:25 Room Air 02/20/22 15:52 02/20/22 15:40 Room Air 02/20/22 15:30 Room Air 02/20/22 12:02 Room Air 02/20/22 11:15 Room Air 02/20/22 10:27 Room Air Laboratory Results Laboratory Results - last 24 hr 02/19/22 02/20/22 06:37 06:26 Sodium 135 L Potassium 4.6 D Chloride 105 Carbon Dioxide 24 Anion Gap 6 BUN 27 H Creatinine 0.87 Est Cr Clr Drug Dosing 62.6 Est GFR ( Amer) 79.3 Est GFR (Non-Af Amer) 68.5 BUN/Creatinine Ratio 31.0 H Glucose 162 H Calcium 8.2 L Magnesium 2.1 Hepatitis C Ab (EIA) NON-REACTIVE Hep C Ab Signal/Cutoff 0.02 Diagnostic Findings Chest X-Ray 02/20/22 12:20 XR chest 2V PA/lateral CLINICAL HISTORY: fluA infection; LLL rales; pneumonia LLL? COMPARISON STUDY: Chest radiograph February 18, 2022. Chest CT July 19, 2016. FINDINGS: Lung volumes are normal. No pneumothorax or pleural effusion is present. There is no consolidation to suggest pneumonia. Linear bibasilar opacities reflect atelectasis or scarring. Mild cardiomegaly is noted. Appearance of the chest is unchanged. IMPRESSION: No acute cardiopulmonary findings. ACT 112: Negative or not required by law. Electronically signed by: Sam Pascual M.D. 02/20/2022 6:24 PM PG Care Time/CCT Total # of Minutes Spent Total Time Spent with Patient: Total time spent is greater than 50% in coordination of care (as documented) at patient's floor/unit and/or counseling patient: Coding Level of Care Code 44321 Subseq Hosp Care Lvl 2 Diagnoses Influenza A J10.1 Acute respiratory failure with hypoxia J96.01 COPD exacerbation J44.1 Hyperlipidemia E78.5 Diabetes E11.9 Bladder spasms N32.89 Hypomagnesemia E83.42 Sinus tachycardia R00.0 HTN (hypertension) I10 GERD (gastroesophageal reflux disease) K21.9
[2022-02-21] MEDS: BUDESONIDE 0.5 MG/2 ML VIAL (PULMICORT) NEB SCH (07:10)
[2022-02-21] MEDS: ALBUT/IPRATROP 3MG/0.5MG NEB 3 ML VIAL NEB SCH ×2 (07:10→11:41)
[2022-02-21] MEDS: OSELTAMIVIR PHOSPHATE 75 MG CAP PO SCH (08:37)
[2022-02-21] MEDS: guaiFENesin 600 MG TABCR PO SCH (08:37)
[2022-02-21] MEDS: methylPREDNISolone 40 MG in SYRINGE 0 ML IV SCH (08:37)
[2022-02-21] MEDS: ASPIRIN 81 MG ECTAB PO SCH (08:37)
[2022-02-21] MEDS: CHOLECALCIFEROL 1,000 UNITS 25 MCG TAB PO SCH (08:38)
[2022-02-21] MEDS: ENOXAPARIN INJ 40 MG/0.4 ML SYR SQ SCH (08:38)
[2022-02-21] MEDS ORDERED: PANTOprazole 40 MG TAB PO SCH (09:00)
--- NOTE | 2022-02-21 13:01 | XCELERA ---
[id number]
--- NOTE | 2022-02-21 14:15 | Discharge Summary ---
Date of Service date of admission - February 19, 2022 date of discharge - February 21, 2022 Admission HPI Per Admitting Provider The patient is a 66-year-old female with a past medical history including COPD, ovarian cancer, hyperlipidemia, diabetes mellitus, hypertension, pulmonary nodu le. She attended a basketball game last evening, and reports developing a nonproductive irritating cough, with shortness of breath and dyspnea on exertion. Work-up in the emergency department included mild hypoxia of 80% on room air, improving to 94% on 2 L nasal cannula. Chest x-ray showed no acute findings. Laboratory work-up included a positive influenza A, glucose of 123, and magnesium of 1.6. From the emergency department, the patient received the following: Solu-Medrol 125 mg IV, DuoNeb x2, and cefepime 2 g IV. I have given the patient Tamiflu 75 mg p.o. in the ED Principal Diagnosis Acute hypoxic respiratory failure 2nd to influenza A infection/bronchitis Discharge Exam gen - NAD, looks very good mouth - MMM neck - no JVD heart - borderline tachy, RR, s1 s2, no murmur lungs - minimal scattered end-exp wheezes b/l but improved from prior exams; good airation; scant dry rales L base abd - soft NT ND BS+ ext - no edema, pulses 2+ b/l Discharge Data Allergies Allergy/AdvReac Type Severity Reaction Status Date / Time Penicillins Allergy Mild RASH Verified 02/19/22 01:46 lisinopril Allergy Unknown COUGH Verified 02/19/22 01:46 Procedures Performed Echocardiogram - EF >70%; no regional wall motion abnormalities; no valvular abnormalities; normal RV size and function; no pulmonary HTN Ordered Studies Chest X-Ray 02/18/22 20:36 XR chest 1V portable CLINICAL HISTORY: SOB TECHNIQUE: Single frontal radiograph of the chest was obtained. Comparison: Comparison is made to rib series 08/24/2015 FINDINGS: No lines and tubes are seen. Cardiomegaly is noted. Reticular interstitial opacities are seen. No evidence of pleural effusion or pneumothorax. IMPRESSION: No acute chest disease. ACT 112: Negative or not required by law. Electronically signed by: Donavon Vásquez M.D. 02/19/2022 8:01 AM Chest X-Ray 02/20/22 12:20 XR chest 2V PA/lateral CLINICAL HISTORY: fluA infection; LLL rales; pneumonia LLL? COMPARISON STUDY: Chest radiograph February 18, 2022. Chest CT July 19, 2016. FINDINGS: Lung volumes are normal. No pneumothorax or pleural effusion is present. There is no consolidation to suggest pneumonia. Linear bibasilar opacities reflect atelectasis or scarring. Mild cardiomegaly is noted. Appeara nce of the chest is unchanged. IMPRESSION: No acute cardiopulmonary findings. ACT 112: Negative or not required by law. Electronically signed by: Sam Pascual M.D. 02/20/2022 6:24 PM Hospital Course (1) Influenza A: Patient was treated with Tamiflu BID, bronchodilators, IV steroids, and supportive care. She will complete 5 more doses of Tamiflu upon discharge home (5-day course in total). She clinically improved with the above measures. She did not have evidence of a complicating bacterial process on CXR x 2. Her last documented fever was on 02/19/22. In addition to Tamiflu she will complete a steroid taper at home. (2) Acute respiratory failure with hypoxia: 2nd to #1, #3 Had documented O2 sats <88% at presentation, RR>25, and was tachycardic to >100 O2 was weaned off prior to discharge On day of discharge O2 sats remained >90% in room air (3) COPD exacerbation: patient has suspected underlying COPD from chronic tobacco use. in fact she was just recently referred for formal PFTs. she had acute bronchitis 2nd to fluA infection she improved with steroids, nebs, Tamiflu, etc she will complete a prednisone taper at home she was provided a spacer device at discharge to use with albuterol MDI at home (4) Hyperlipidemia: Continue atorvastatin 80 mg at bedtime (5) Diabetes: The patient will continue to use her insulin pump and Dexcom unit at home She had adequate glycemic control while here hemoglobin A1c 8% this admission (6) Bladder spasms: Continue Myrbetriq (7) Hypomagnesemia: replaced resolved (8) Sinus tachycardia: Likely 2nd to #1, #2, or #3 or combination of those factors echocardiogram showed normal LV & RV function PA pressures were normal no other dysrhythmia (a.fib, SVT, etc) was seen while here (9) HTN (hypertension): chart lists this as a diagnosis, but not on meds at home for such. most BPs were 120s and 130s systolic while here. (10) GERD (gastroesophageal reflux disease): continue PPI Total Time Total Time Spent Total Time Spent (In Minutes): 40 Discharge Plan Discharge Items Patient Disposition: Home - Self-Care Reason For Visit: INFLUENZA A infection Discharge Diagnosis: 1. Influenza A infection 2. Acute bronchitis due to #1 Activity: As commented below Activity Comment: gradually increase your activities over the next 7-10 days Exercise/Sports: Wait until after follow-up appointment Non-emergency contact: Primary Care Provider Call non-emergency contact if: you have any medication questions, your symptoms worsen and you have a fever Follow-up/Referrals: Isabela Ayers D.O. [Primary Care Provider] - (see Dr Mcarthur within 5 days for recheck) Diet: Carb Count or DM1 Addtl Attending Provider Instructions: Mrs Rendon, You were hospitalized for influenza A infection which led to acute bronchitis. Two x-rays of your lungs did not show pneumonia. You improved nicely with IV steroids and albuterol treatments along with Tamiflu. Your oxygen levels on the day of discharge were normal both at rest and with walking. An echocardiogram of your heart was normal with good heart function and normal valve function. Your doctors in [place] are setting up pulmonary function tests for you to determine if you have underlying COPD (emphysema). Please keep those appointments. Recommendations - 1. Take tamiflu (oseltamivir) 75mg twice daily x 5 more doses, first dose TONIGHT. This is for the flu. 2. Take a prednisone taper. Start this TOMORROW, 02/22/22. This is to resolve the wheezing and to help with your cough. 3. Continue your albuterol inhaler for several more days. Use the spacer device that we gave to you. I would recommend 2 puffs via the spacer 4 times a day for 3-4 days scheduled. After that you can use the inhaler every 6 hours as needed for cough/wheeze/shortness of breath. 4. May take [id number] mucinex up to 1200mg twice daily for cough/congestion. 5. Continue your flutter valve for a few more days to help open up your lungs. 6. If come Tuesday you are feeling well, have minimal cough, and have had no more fever you are UNLIKELY contagious to others. 7. Please know that the prednisone WILL cause your blood sugars to be higher than typical. Please adjust your insulin pump accordingly with the help of your diabetes doctor, if necessary. 8. Follow-up with your family doctor this week for a recheck. Return to [facility] if - * you develop high, spiking fevers over 101 degrees * you develop worsening shortness of breath * you develop chest pains * you have worsening wheezing * any other concerns It was our pleasure to care for you at [facility]! Happy holidays, Dr Reilly Pending Studies at Discharge: No Stand-Alone Forms: [facility], Smoking Cessation Medications and DC Order Prescriptions: New oseltamivir [Tamiflu] 75 mg Capsule 75 mg PO BID Qty: 5 0RF omeprazole 20 mg capsule,delayed release(DR/EC) 20 mg PO DAILY Qty: 1 0RF albuterol sulfate [Ventolin HFA] 90 mcg/actuation HFA aerosol inhaler 2 inh inhalation Q6H PRN (Reason: shortness of breath or wheezing) Qty: 6.7 0RF prednisone 10 mg tablet 10 mg PO .daily as directed Qty: 19 0RF Rx Instructions: start 02/22: 4 tabs days 1/2, 3 tabs days 3/4, 2 tabs days 5/6, 1 tab day 7. Take w/ food. Continued atorvastatin 80 mg Tablet 80 mg PO HS zinc acetate 50 mg (zinc) Capsule 50 mg PO QAM aspirin 81 mg Tablet,Delayed Release (Dr/Ec) 81 mg PO QAM cholecalciferol (vitamin D3) [Vitamin D3] 125 mcg (5,000 unit) Tablet 125 mcg PO QAM insulin aspart U-100 [Novolog U-100 Insulin aspart] 100 unit/mL Solution 1 sliding scale dose SUBCUT USEASDIRECTD Rx Instructions: via pump Myrbetriq 1 tab PO QAM Rx Instructions: unknown dose Discharge Orders: Discharge Order (Routine); Ordered 02/21/22 Ordered By: Davon Reilly Admission Data Admit Date/Time: 02/20/22 17:21 Attending Provider: Davon Reilly Admit Provider: Caleb Escobar Primary Care Provider: Isabela Ayers Other Providers: Caleb Escobar Other Interventions: Discharge Summary Assessment (RN) Last Done: 02/21/22 14:51 Coding Level of Care Code D/C DAY MANAGEMENT >30 MINS Diagnoses Influenza A J10.1 Acute respiratory failure with hypoxia J96.01 COPD exacerbation J44.1 Hyperlipidemia E78.5 Diabetes E11.9 Bladder spasms N32.89 Hypomagnesemia E83.42 Sinus tachycardia R00.0 HTN (hypertension) I10 GERD (gastroesophageal reflux disease) K21.9
== END 2022-02-21 15:24 | disposition home or self-care (01) | DRG 193 ==
LOC: ED 20:26 → 2S 20:26 → SUATTDRO 02-19 01:29 → 2S 02-19 02:21

== ENCOUNTER 2024-03-20 22:07 | Observation (INO) ==
[2024-03-20] MEDS: methylPREDNISolone 125 MG/2 ML VIAL IV STA (22:34)
[2024-03-20] MEDS: ALBUT/IPRATROP 3MG/0.5MG NEB 3 ML VIAL NEB STA (22:34)
[2024-03-20] MEDS: ACETAMINOPHEN 1,000 MG/100 ML VIAL IV STA (22:34)
--- NOTE | 2024-03-20 22:41 | Emergency Department Note ---
History of Present Illness General Chief complaint: Shortness of Breath/Dyspnea Stated complaint: short of breath, weekness Time Seen by Provider: 03/20/24 22:16 History of Present Illness This 68-year-old female with a past medical history including COPD, ovarian cancer, hyperlipidemia, diabetes mellitus, hypertension, pulmonary nodule presents ER complaining of flulike symptoms for the past day. Patient was a cough, congestion and flulike illness with fever and chills. She took a nebulizer treatment this morning. No other meds for the fever. Patient denies chest pain, abdominal pain, vomiting, diarrhea. She was hypoxic at 88% and oxygen improved on nasal cannula. Home Medications Medication Instructions Recorded Confirmed Type aspirin 81 mg tablet,delayed 81 mg PO QAM 02/19/22 10/19/23 History release atorvastatin 80 mg tablet 80 mg PO HS 02/19/22 10/19/23 History cholecalciferol (vitamin D3) 125 125 mcg PO QAM 02/19/22 10/19/23 History mcg (5,000 unit) tablet (Vitamin D3) insulin aspart U-100 100 unit/mL 1 sliding scale dose continuous 02/19/22 10/19/23 History subcutaneous solution (Novolog subcutaneous infusion CONTINOUS U-100 Insulin aspart) zinc acetate 50 mg (zinc) capsule 50 mg PO QAM 02/19/22 10/19/23 History albuterol sulfate 90 mcg/actuation 2 inh inhalation Q6H PRN shortness 02/21/22 10/19/23 Rx aerosol inhaler (Ventolin HFA) of breath or wheezing #6.7 grams omeprazole 20 mg capsule,delayed 20 mg PO DAILY #1 cap 02/21/22 10/19/23 Rx release ipratropium 0.5 mg-albuterol 3 mg 3 ml inhalation Q6H PRN wheezing 05/21/22 10/19/23 Rx (2.5 mg base)/3 mL nebulization #90 mL soln fluticasone furoate 100 1 inh inhalation Q OTHER DAY 10/19/23 10/19/23 History mcg-vilanterol 25 mcg/dose inhalation powder (Breo Ellipta) mirabegron 25 mg tablet,extended 0 mg PO DAILY 10/19/23 10/19/23 History release 24 hr (Myrbetriq) Allergies Allergy/AdvReac Type Severity Reaction Status Date / Time Penicillins Allergy Intermediate RASH Verified 10/19/23 23:33 lisinopril AdvReac Intermediate COUGH Verified 10/19/23 23:33 Past Med/Surg History Problem List (Updated 03/21/24 @ 00:38 by Stefani Zimmer PA-C) Hypoxemia (Acute) Influenza A (Acute) Acute exacerbation of chronic obstructive airways disease (Acute) Multiple fractures of ribs of right side (Acute) Status post right rotator cuff repair Pneumonia (Acute) Ovarian cancer (Chronic) Incidental pulmonary nodule (Acute) Right shoulder strain (Acute) Medical History GERD (gastroesophageal reflux disease) Hypomagnesemia Bladder spasms Influenza A Acute exacerbation of COPD with asthma Hyperlipidemia Diabetes HTN (hypertension) Social History Smoking Status: Former smoker Tobacco Type: Cigarettes Second Hand Exposure: Yes; Do You Dip or Chew Tobacco: No; Hx Alcohol Use: No Hx Substance Use: No Preferred Language: Divehi Communication Ability: Effective Nurse Quality Required: No Beliefs That Will Affect Care: None marital status: Current Living Situation: Spouse current occupational status: retired Feels Safe at Home: Yes Assistive Devices: None Review of Systems A total of 10 systems reviewed and were otherwise negative Physical Exam Vital Signs Vital Signs - 24 hr 03/20/24 22:09 03/20/24 22:17 03/20/24 22:17 Temperature 37.7 C H Temperature Source Temporal Artery Scan Pulse Rate 108 H 109 H Pulse Rate from SpO2 Sensor Respiratory Rate 28 H Respiratory Effort / Characteristics Respiratory Depth Blood Pressure 147/59 H 137/72 Blood Pressure Mean 88 99 Pulse Oximetry 88 L 86 L Oxygen Delivery Method Room Air Room Air Oxygen Flow Rate Sepsis Recent Fever Within 48 Hours No Sepsis New/Unexplained Change in Mental Status No Sepsis Action Taken by Nursing No Action Required 03/20/24 22:17 03/20/24 22:21 03/20/24 22:21 Temperature Temperature Source Pulse Rate Pulse Rate from SpO2 Sensor Respiratory Rate Respiratory Effort / Characteristics Respiratory Depth Blood Pressure 137/72 Blood Pressure Mean 99 Pulse Oximetry Oxygen Delivery Method Nasal Cannula Nasal Cannula Oxygen Flow Rate Sepsis Recent Fever Within 48 Hours Sepsis New/Unexplained Change in Mental Status Sepsis Action Taken by Nursing 03/20/24 22:21 03/20/24 22:27 03/20/24 22:49 Temperature Temperature Source Pulse Rate 109 H Pulse Rate from SpO2 Sensor 109 H Respiratory Rate 27 H Respiratory Effort / Characteristics Non-Labored Respiratory Depth Normal Blood Pressure 128/92 Blood Pressure Mean 94 Pulse Oximetry 98 Oxygen Delivery Method Nasal Cannula Oxygen Flow Rate 2 Sepsis Recent Fever Within 48 Hours Sepsis New/Unexplained Change in Mental Status Sepsis Action Taken by Nursing 03/20/24 22:49 03/20/24 22:49 03/20/24 22:57 Temperature Temperature Source Pulse Rate 116 H Pulse Rate from SpO2 Sensor 115 H Respiratory Rate 23 Respiratory Effort / Characteristics Respiratory Depth Blood Pressure 128/92 128/92 Blood Pressure Mean 94 94 Pulse Oximetry 100 Oxygen Delivery Method Oxygen Flow Rate Sepsis Recent Fever Within 48 Hours Sepsis New/Unexplained Change in Mental Status Sepsis Action Taken by Nursing 03/20/24 23:00 03/20/24 23:00 03/20/24 23:00 Temperature Temperature Source Pulse Rate Pulse Rate from SpO2 Sensor Respiratory Rate Respiratory Effort / Characteristics Respiratory Depth Blood Pressure 131/75 131/75 131/75 Blood Pressure Mean 87 87 87 Pulse Oximetry Oxygen Delivery Method Oxygen Flow Rate Sepsis Recent Fever Within 48 Hours Sepsis New/Unexplained Change in Mental Status Sepsis Action Taken by Nursing 03/20/24 23:00 03/20/24 23:12 03/20/24 23:14 Temperature Temperature Source Pulse Rate 117 H 123 H Pulse Rate from SpO2 Sensor 117 H 122 H Respiratory Rate 26 H 22 Respiratory Effort / Characteristics Respiratory Depth Blood Pressure Blood Pressure Mean Pulse Oximetry 100 95 Oxygen Delivery Method Nasal Cannula Oxygen Flow Rate 3 Sepsis Recent Fever Within 48 Hours Sepsis New/Unexplained Change in Mental Status Sepsis Action Taken by Nursing 03/20/24 23:14 03/20/24 23:15 03/20/24 23:21 Temperature Temperature Source Pulse Rate Pulse Rate from SpO2 Sensor Respiratory Rate Respiratory Effort / Characteristics Non-Labored Non-Labored Respiratory Depth Normal Normal Blood Pressure Blood Pressure Mean Pulse Oximetry Oxygen Delivery Method Room Air Oxygen Flow Rate Sepsis Recent Fever Within 48 Hours Sepsis New/Unexplained Change in Mental Status Sepsis Action Taken by Nursing 03/20/24 23:21 03/20/24 23:30 03/20/24 23:36 Temperature Temperature Source Pulse Rate 114 H 113 H Pulse Rate from SpO2 Sensor 114 H 113 H Respiratory Rate 24 22 Respiratory Effort / Characteristics Respiratory Depth Blood Pressure 117/57 L Blood Pressure Mean 80 Pulse Oximetry 93 92 Oxygen Delivery Method Oxygen Flow Rate Sepsis Recent Fever Within 48 Hours Sepsis New/Unexplained Change in Mental Status Sepsis Action Taken by Nursing 03/21/24 00:00 03/21/24 00:03 03/21/24 00:08 Temperature Temperature Source Pulse Rate 111 H Pulse Rate from SpO2 Sensor 110 H Respiratory Rate 18 Respiratory Effort / Characteristics Respiratory Depth Blood Pressure 118/49 L Blood Pressure Mean 60 Pulse Oximetry 92 Oxygen Delivery Method Nasal Cannula Oxygen Flow Rate Sepsis Recent Fever Within 48 Hours Sepsis New/Unexplained Change in Mental Status Sepsis Action Taken by Nursing 03/21/24 00:15 03/21/24 00:21 03/21/24 00:30 Temperature Temperature Source Pulse Rate 111 H 108 H Pulse Rate from SpO2 Sensor 103 H 111 H Respiratory Rate 21 23 Respiratory Effort / Characteristics Non-Labored Respiratory Depth Normal Blood Pressure Blood Pressure Mean Pulse Oximetry 91 90 Oxygen Delivery Method Nasal Cannula Oxygen Flow Rate 4 Sepsis Recent Fever Within 48 Hours Sepsis New/Unexplained Change in Mental Status Sepsis Action Taken by Nursing VITALS: Vitals are noted on the nurse's note and reviewed by myself. Vital signs febrile and pulse ox 88% on room air which improved with nasal cannula GENERAL: Pleasant female coughing who appears sick, family present SKIN: The skin was without rashes, erythema, edema, or bruising. There is no tenting of the skin. Capillary reflex less than 2 seconds. HEAD: Normocephalic atraumatic. EARS: External auditory canals clear EYES: Pupils equal round and reactive to light and accommodation. Conjunctivae without injection, sclerae without icterus. Extraocular movements intact. NOSE: Patent, no discharge. MOUTH: Mucous membranes moist. Pharynx without erythema or exudate. Uvula midline. Airway patent. Tongue does not deviate. NECK: Supple without nuchal rigidity. No lymphadenopathy. No thyromegaly. Cervical spine is nontender. No JVD. HEART: Mildly tachycardic rate and rhythm LUNGS: Diffuse inspiratory and end expiratory wheezes. No retractions or accessory muscle use. ABDOMEN: Positive bowel sounds x 4. Normal tympanic percussion. Soft, nontender, without masses or organomegaly. Barboza sign negative. No guarding or rebound tenderness. No CVA tenderness MUSCULOSKELETAL: No muscle atrophy, erythema, or edema noted. NEURO: Patient was alert and oriented to person place and time. Normal sensation to light and sharp touch. No focal neurological deficits. Course Administered Medications Discontinued Medications Albuterol (Albut/Ipratrop 3mg/0.5mg Neb 3 Ml Vial) 3 ml NEB NOW STA; Protocol Stop: 03/20/24 22:22 Last Admin: 03/20/24 22:34 Dose: 3 ml Documented By: CHARLY Acetaminophen (Ofirmev) 1,000 mg in 100 mls @ 400 mls/hr IV NOW STA Stop: 03/20/24 22:39 Last Infusion: 03/20/24 23:12 Dose: Infused Documented By: Admin: 03/20/24 22:34 Dose: 400 mls/hr Documented By: CHARLY Methylprednisolone (Methylprednisolone 125 Mg/2 Ml Vial) 125 mg IV NOW STA Stop: 03/20/24 22:22 Last Admin: 03/20/24 22:34 Dose: 125 mg Documented By: CHARLY Medical Decision Making Medical Records Attestation: I reviewed the patient's medical records. Home Medications Current Medication List: was personally reviewed by me Laboratory Data Attestation: I reviewed the patient's lab results. 03/20/24 22:34 03/20/24 22:34 Lab Results 03/20/24 03/20/24 03/20/24 Range/Units 22:34 22:34 22:34 WBC 7.91 (4.8-10.8) K/ul RBC 4.73 (4.20-5.40) M/uL Hgb 13.6 (12.0-16.0) g/dl Hct 41.7 (37.0-47.0) % MCV 88.2 (80.0-100.0) fL MCH 28.8 (25.0-34.0) pg MCHC 32.6 (32.0-36.0) g/dL RDW Std Deviation 40.9 (36.4-46.3) fL RDW Coeff of Crystal 12.6 (11.5-14.5) % Plt Count 183 (130-400) K/uL MPV 10.1 (9.4-12.4) fL Immature Gran % (Auto) 0.4 % Neut % (Auto) 88.8 % Lymph % (Auto) 3.5 % Bledsoe % (Auto) 4.3 % Eos % (Auto) 2.5 % Baso % (Auto) 0.5 % Neut # (Auto) 7.02 H (1.40-6.50) K/uL Lymph # (Auto) 0.28 L (1.20-3.40) K/uL Bledsoe # (Auto) 0.34 (0.11-0.59) K/uL Eos # (Auto) 0.20 (0.00-0.50) K/uL Baso # (Auto) 0.04 (0.00-0.20) K/uL Immature Gran # (Auto) 0.03 (0.01-0.20) K/uL PT 10.5 (9.0-12.0) Seconds INR 1.0 (0.9-1.1) APTT 23 (21-31) Seconds PTT Ratio 0.9 VBG pH 7.40 (7.36-7.41) VBG pCO2 45 (38-50) mmHg VBG pO2 37 mmHg VBG HCO3 28 mmol/L VBG O2 Saturation < 60.0 % VBG Base Excess 2.5 mEq/L Sodium Cancelled 137 Potassium Cancelled 4.1 Chloride Cancelled Carbon Dioxide Anion Gap BUN Creatinine Est Cr Clr Drug Dosing eGFR BUN/Creatinine Ratio Glucose Lactate (0.4-2.0) mmol/L Calcium Magnesium (1.7-2.4) mg/dl Total Bilirubin (0.2-1.0) mg/dl Direct Bilirubin (0-0.2) mg/dl AST (13-39) U/L ALT (7-52) U/L Alkaline Phosphatase (34-104) U/L Troponin I High Sens (0-14) pg/ml B-Natriuretic Peptide (0-100) pg/ml Total Protein (6.0-8.3) gm/dl Albumin (3.4-5.0) gm/dl Globulin Albumin/Globulin Ratio Procalcitonin (0-0.5) ng/ml Adenovirus (PCR) (NotDetected) B. pertussis DNA (PCR) (NotDetected) B.parapertussis DNA PCR (NotDetected) C. pneumoniae DNA (PCR) (NotDetected) Coronavirus OC43 (PCR) (NotDetected) Coronavirus HKU1 (PCR) (NotDetected) Coronavirus 229E (PCR) (NotDetected) SARS-CoV-2 (PCR) (NotDetected) Coronavirus NL63 (PCR) (NotDetected) Human Metapneumovir PCR (NotDetected) Influenza A (H3) PCR (NotDetected) Influenza Type B (PCR) (NotDetected) M. pneumoniae (PCR) (NotDetected) Parainfluenza 1 (PCR) (NotDetected) Parainfluenza 2 (PCR) (NotDetected) Parainfluenza 3 (PCR) (NotDetected) Parainfluenza 4 (PCR) (NotDetected) RSV (PCR) (NotDetected) Entero/Rhino (PCR) (NotDetected) 03/20/24 03/20/24 03/20/24 Range/Units 22:34 22:34 22:34 WBC (4.8-10.8) K/ul RBC (4.20-5.40) M/uL Hgb (12.0-16.0) g/dl Hct (37.0-47.0) % MCV (80.0-100.0) fL MCH (25.0-34.0) pg MCHC (32.0-36.0) g/dL RDW Std Deviation (36.4-46.3) fL RDW Coeff of Crystal (11.5-14.5) % Plt Count (130-400) K/uL MPV (9.4-12.4) fL Immature Gran % (Auto) % Neut % (Auto) % Lymph % (Auto) % Bledsoe % (Auto) % Eos % (Auto) % Baso % (Auto) % Neut # (Auto) (1.40-6.50) K/uL Lymph # (Auto) (1.20-3.40) K/uL Bledsoe # (Auto) (0.11-0.59) K/uL Eos # (Auto) (0.00-0.50) K/uL Baso # (Auto) (0.00-0.20) K/uL Immature Gran # (Auto) (0.01-0.20) K/uL PT (9.0-12.0) Seconds INR (0.9-1.1) APTT (21-31) Seconds PTT Ratio VBG pH (7.36-7.41) VBG pCO2 (38-50) mmHg VBG pO2 mmHg VBG HCO3 mmol/L VBG O2 Saturation % VBG Base Excess mEq/L Sodium Potassium Chloride 101 Carbon Dioxide Cancelled 24 Anion Gap Cancelled 12 H BUN Cancelled Creatinine Est Cr Clr Drug Dosing eGFR BUN/Creatinine Ratio Glucose Lactate (0.4-2.0) mmol/L Calcium Magnesium (1.7-2.4) mg/dl Total Bilirubin (0.2-1.0) mg/dl Direct Bilirubin (0-0.2) mg/dl AST (13-39) U/L ALT (7-52) U/L Alkaline Phosphatase (34-104) U/L Troponin I High Sens (0-14) pg/ml B-Natriuretic Peptide (0-100) pg/ml Total Protein (6.0-8.3) gm/dl Albumin (3.4-5.0) gm/dl Globulin Albumin/Globulin Ratio Procalcitonin (0-0.5) ng/ml Adenovirus (PCR) (NotDetected) B. pertussis DNA (PCR) (NotDetected) B.parapertussis DNA PCR (NotDetected) C. pneumoniae DNA (PCR) (NotDetected) Coronavirus OC43 (PCR) (NotDetected) Coronavirus HKU1 (PCR) (NotDetected) Coronavirus 229E (PCR) (NotDetected) SARS-CoV-2 (PCR) (NotDetected) Coronavirus NL63 (PCR) (NotDetected) Human Metapneumovir PCR (NotDetected) Influenza A (H3) PCR (NotDetected) Influenza Type B (PCR) (NotDetected) M. pneumoniae (PCR) (NotDetected) Parainfluenza 1 (PCR) (NotDetected) Parainfluenza 2 (PCR) (NotDetected) Parainfluenza 3 (PCR) (NotDetected) Parainfluenza 4 (PCR) (NotDetected) RSV (PCR) (NotDetected) Entero/Rhino (PCR) (NotDetected) 03/20/24 03/20/24 03/20/24 Range/Units 22:34 22:34 22:34 WBC (4.8-10.8) K/ul RBC (4.20-5.40) M/uL Hgb (12.0-16.0) g/dl Hct (37.0-47.0) % MCV (80.0-100.0) fL MCH (25.0-34.0) pg MCHC (32.0-36.0) g/dL RDW Std Deviation (36.4-46.3) fL RDW Coeff of Crystal (11.5-14.5) % Plt Count (130-400) K/uL MPV (9.4-12.4) fL Immature Gran % (Auto) % Neut % (Auto) % Lymph % (Auto) % Bledsoe % (Auto) % Eos % (Auto) % Baso % (Auto) % Neut # (Auto) (1.40-6.50) K/uL Lymph # (Auto) (1.20-3.40) K/uL Bledsoe # (Auto) (0.11-0.59) K/uL Eos # (Auto) (0.00-0.50) K/uL Baso # (Auto) (0.00-0.20) K/uL Immature Gran # (Auto) (0.01-0.20) K/uL PT (9.0-12.0) Seconds INR (0.9-1.1) APTT (21-31) Seconds PTT Ratio VBG pH (7.36-7.41) VBG pCO2 (38-50) mmHg VBG pO2 mmHg VBG HCO3 mmol/L VBG O2 Saturation % VBG Base Excess mEq/L Sodium Potassium Chloride Carbon Dioxide Anion Gap BUN 23 Creatinine Cancelled 1.00 Est Cr Clr Drug Dosing Cancelled 51.9 eGFR Cancelled BUN/Creatinine Ratio Glucose Lactate (0.4-2.0) mmol/L Calcium Magnesium (1.7-2.4) mg/dl Total Bilirubin (0.2-1.0) mg/dl Direct Bilirubin (0-0.2) mg/dl AST (13-39) U/L ALT (7-52) U/L Alkaline Phosphatase (34-104) U/L Troponin I High Sens (0-14) pg/ml B-Natriuretic Peptide (0-100) pg/ml Total Protein (6.0-8.3) gm/dl Albumin (3.4-5.0) gm/dl Globulin Albumin/Globulin Ratio Procalcitonin (0-0.5) ng/ml Adenovirus (PCR) (NotDetected) B. pertussis DNA (PCR) (NotDetected) B.parapertussis DNA PCR (NotDetected) C. pneumoniae DNA (PCR) (NotDetected) Coronavirus OC43 (PCR) (NotDetected) Coronavirus HKU1 (PCR) (NotDetected) Coronavirus 229E (PCR) (NotDetected) SARS-CoV-2 (PCR) (NotDetected) Coronavirus NL63 (PCR) (NotDetected) Human Metapneumovir PCR (NotDetected) Influenza A (H3) PCR (NotDetected) Influenza Type B (PCR) (NotDetected) M. pneumoniae (PCR) (NotDetected) Parainfluenza 1 (PCR) (NotDetected) Parainfluenza 2 (PCR) (NotDetected) Parainfluenza 3 (PCR) (NotDetected) Parainfluenza 4 (PCR) (NotDetected) RSV (PCR) (NotDetected) Entero/Rhino (PCR) (NotDetected) 03/20/24 03/20/24 03/20/24 Range/Units 22:34 22:34 22:34 WBC (4.8-10.8) K/ul RBC (4.20-5.40) M/uL Hgb (12.0-16.0) g/dl Hct (37.0-47.0) % MCV (80.0-100.0) fL MCH (25.0-34.0) pg MCHC (32.0-36.0) g/dL RDW Std Deviation (36.4-46.3) fL RDW Coeff of Crystal (11.5-14.5) % Plt Count (130-400) K/uL MPV (9.4-12.4) fL Immature Gran % (Auto) % Neut % (Auto) % Lymph % (Auto) % Bledsoe % (Auto) % Eos % (Auto) % Baso % (Auto) % Neut # (Auto) (1.40-6.50) K/uL Lymph # (Auto) (1.20-3.40) K/uL Bledsoe # (Auto) (0.11-0.59) K/uL Eos # (Auto) (0.00-0.50) K/uL Baso # (Auto) (0.00-0.20) K/uL Immature Gran # (Auto) (0.01-0.20) K/uL PT (9.0-12.0) Seconds INR (0.9-1.1) APTT (21-31) Seconds PTT Ratio VBG pH (7.36-7.41) VBG pCO2 (38-50) mmHg VBG pO2 mmHg VBG HCO3 mmol/L VBG O2 Saturation % VBG Base Excess mEq/L Sodium Potassium Chloride Carbon Dioxide Anion Gap BUN Creatinine Est Cr Clr Drug Dosing eGFR 60.61 BUN/Creatinine Ratio Cancelled 23.0 H Glucose Cancelled 179 H Lactate 1.9 (0.4-2.0) mmol/L Calcium Cancelled Magnesium (1.7-2.4) mg/dl Total Bilirubin (0.2-1.0) mg/dl Direct Bilirubin (0-0.2) mg/dl AST (13-39) U/L ALT (7-52) U/L Alkaline Phosphatase (34-104) U/L Troponin I High Sens (0-14) pg/ml B-Natriuretic Peptide (0-100) pg/ml Total Protein (6.0-8.3) gm/dl Albumin (3.4-5.0) gm/dl Globulin Albumin/Globulin Ratio Procalcitonin (0-0.5) ng/ml Adenovirus (PCR) (NotDetected) B. pertussis DNA (PCR) (NotDetected) B.parapertussis DNA PCR (NotDetected) C. pneumoniae DNA (PCR) (NotDetected) Coronavirus OC43 (PCR) (NotDetected) Coronavirus HKU1 (PCR) (NotDetected) Coronavirus 229E (PCR) (NotDetected) SARS-CoV-2 (PCR) (NotDetected) Coronavirus NL63 (PCR) (NotDetected) Human Metapneumovir PCR (NotDetected) Influenza A (H3) PCR (NotDetected) Influenza Type B (PCR) (NotDetected) M. pneumoniae (PCR) (NotDetected) Parainfluenza 1 (PCR) (NotDetected) Parainfluenza 2 (PCR) (NotDetected) Parainfluenza 3 (PCR) (NotDetected) Parainfluenza 4 (PCR) (NotDetected) RSV (PCR) (NotDetected) Entero/Rhino (PCR) (NotDetected) 03/20/24 03/20/24 03/20/24 Range/Units 22:34 22:34 22:34 WBC (4.8-10.8) K/ul RBC (4.20-5.40) M/uL Hgb (12.0-16.0) g/dl Hct (37.0-47.0) % MCV (80.0-100.0) fL MCH (25.0-34.0) pg MCHC (32.0-36.0) g/dL RDW Std Deviation (36.4-46.3) fL RDW Coeff of Crystal (11.5-14.5) % Plt Count (130-400) K/uL MPV (9.4-12.4) fL Immature Gran % (Auto) % Neut % (Auto) % Lymph % (Auto) % Bledsoe % (Auto) % Eos % (Auto) % Baso % (Auto) % Neut # (Auto) (1.40-6.50) K/uL Lymph # (Auto) (1.20-3.40) K/uL Bledsoe # (Auto) (0.11-0.59) K/uL Eos # (Auto) (0.00-0.50) K/uL Baso # (Auto) (0.00-0.20) K/uL Immature Gran # (Auto) (0.01-0.20) K/uL PT (9.0-12.0) Seconds INR (0.9-1.1) APTT (21-31) Seconds PTT Ratio VBG pH (7.36-7.41) VBG pCO2 (38-50) mmHg VBG pO2 mmHg VBG HCO3 mmol/L VBG O2 Saturation % VBG Base Excess mEq/L Sodium Potassium Chloride Carbon Dioxide Anion Gap BUN Creatinine Est Cr Clr Drug Dosing eGFR BUN/Creatinine Ratio Glucose Lactate (0.4-2.0) mmol/L Calcium 9.3 Magnesium 1.7 (1.7-2.4) mg/dl Total Bilirubin 0.5 0.5 (0.2-1.0) mg/dl Direct Bilirubin 0.1 (0-0.2) mg/dl AST 38 39 (13-39) U/L ALT 48 (7-52) U/L Alkaline Phosphatase (34-104) U/L Troponin I High Sens (0-14) pg/ml B-Natriuretic Peptide (0-100) pg/ml Total Protein (6.0-8.3) gm/dl Albumin (3.4-5.0) gm/dl Globulin Albumin/Globulin Ratio Procalcitonin (0-0.5) ng/ml Adenovirus (PCR) (NotDetected) B. pertussis DNA (PCR) (NotDetected) B.parapertussis DNA PCR (NotDetected) C. pneumoniae DNA (PCR) (NotDetected) Coronavirus OC43 (PCR) (NotDetected) Coronavirus HKU1 (PCR) (NotDetected) Coronavirus 229E (PCR) (NotDetected) SARS-CoV-2 (PCR) (NotDetected) Coronavirus NL63 (PCR) (NotDetected) Human Metapneumovir PCR (NotDetected) Influenza A (H3) PCR (NotDetected) Influenza Type B (PCR) (NotDetected) M. pneumoniae (PCR) (NotDetected) Parainfluenza 1 (PCR) (NotDetected) Parainfluenza 2 (PCR) (NotDetected) Parainfluenza 3 (PCR) (NotDetected) Parainfluenza 4 (PCR) (NotDetected) RSV (PCR) (NotDetected) Entero/Rhino (PCR) (NotDetected) 03/20/24 03/20/24 03/20/24 Range/Units 22:34 22:34 22:34 WBC (4.8-10.8) K/ul RBC (4.20-5.40) M/uL Hgb (12.0-16.0) g/dl Hct (37.0-47.0) % MCV (80.0-100.0) fL MCH (25.0-34.0) pg MCHC (32.0-36.0) g/dL RDW Std Deviation (36.4-46.3) fL RDW Coeff of Crystal (11.5-14.5) % Plt Count (130-400) K/uL MPV (9.4-12.4) fL Immature Gran % (Auto) % Neut % (Auto) % Lymph % (Auto) % Bledsoe % (Auto) % Eos % (Auto) % Baso % (Auto) % Neut # (Auto) (1.40-6.50) K/uL Lymph # (Auto) (1.20-3.40) K/uL Bledsoe # (Auto) (0.11-0.59) K/uL Eos # (Auto) (0.00-0.50) K/uL Baso # (Auto) (0.00-0.20) K/uL Immature Gran # (Auto) (0.01-0.20) K/uL PT (9.0-12.0) Seconds INR (0.9-1.1) APTT (21-31) Seconds PTT Ratio VBG pH (7.36-7.41) VBG pCO2 (38-50) mmHg VBG pO2 mmHg VBG HCO3 mmol/L VBG O2 Saturation % VBG Base Excess mEq/L Sodium Potassium Chloride Carbon Dioxide Anion Gap BUN Creatinine Est Cr Clr Drug Dosing eGFR BUN/Creatinine Ratio Glucose Lactate (0.4-2.0) mmol/L Calcium Magnesium (1.7-2.4) mg/dl Total Bilirubin (0.2-1.0) mg/dl Direct Bilirubin (0-0.2) mg/dl AST (13-39) U/L ALT 48 (7-52) U/L Alkaline Phosphatase 128 H 127 H (34-104) U/L Troponin I High Sens 14.6 H (0-14) pg/ml B-Natriuretic Peptide (0-100) pg/ml Total Protein 7.5 7.5 (6.0-8.3) gm/dl Albumin 4.4 (3.4-5.0) gm/dl Globulin Albumin/Globulin Ratio Procalcitonin (0-0.5) ng/ml Adenovirus (PCR) (NotDetected) B. pertussis DNA (PCR) (NotDetected) B.parapertussis DNA PCR (NotDetected) C. pneumoniae DNA (PCR) (NotDetected) Coronavirus OC43 (PCR) (NotDetected) Coronavirus HKU1 (PCR) (NotDetected) Coronavirus 229E (PCR) (NotDetected) SARS-CoV-2 (PCR) (NotDetected) Coronavirus NL63 (PCR) (NotDetected) Human Metapneumovir PCR (NotDetected) Influenza A (H3) PCR (NotDetected) Influenza Type B (PCR) (NotDetected) M. pneumoniae (PCR) (NotDetected) Parainfluenza 1 (PCR) (NotDetected) Parainfluenza 2 (PCR) (NotDetected) Parainfluenza 3 (PCR) (NotDetected) Parainfluenza 4 (PCR) (NotDetected) RSV (PCR) (NotDetected) Entero/Rhino (PCR) (NotDetected) 03/20/24 03/20/24 03/20/24 Range/Units 22:34 22:34 22:34 WBC (4.8-10.8) K/ul RBC (4.20-5.40) M/uL Hgb (12.0-16.0) g/dl Hct (37.0-47.0) % MCV (80.0-100.0) fL MCH (25.0-34.0) pg MCHC (32.0-36.0) g/dL RDW Std Deviation (36.4-46.3) fL RDW Coeff of Crystal (11.5-14.5) % Plt Count (130-400) K/uL MPV (9.4-12.4) fL Immature Gran % (Auto) % Neut % (Auto) % Lymph % (Auto) % Bledsoe % (Auto) % Eos % (Auto) % Baso % (Auto) % Neut # (Auto) (1.40-6.50) K/uL Lymph # (Auto) (1.20-3.40) K/uL Bledsoe # (Auto) (0.11-0.59) K/uL Eos # (Auto) (0.00-0.50) K/uL Baso # (Auto) (0.00-0.20) K/uL Immature Gran # (Auto) (0.01-0.20) K/uL PT (9.0-12.0) Seconds INR (0.9-1.1) APTT (21-31) Seconds PTT Ratio VBG pH (7.36-7.41) VBG pCO2 (38-50) mmHg VBG pO2 mmHg VBG HCO3 mmol/L VBG O2 Saturation % VBG Base Excess mEq/L Sodium Potassium Chloride Carbon Dioxide Anion Gap BUN Creatinine Est Cr Clr Drug Dosing eGFR BUN/Creatinine Ratio Glucose Lactate (0.4-2.0) mmol/L Calcium Magnesium (1.7-2.4) mg/dl Total Bilirubin (0.2-1.0) mg/dl Direct Bilirubin (0-0.2) mg/dl AST (13-39) U/L ALT (7-52) U/L Alkaline Phosphatase (34-104) U/L Troponin I High Sens (0-14) pg/ml B-Natriuretic Peptide (0-100) pg/ml Total Protein (6.0-8.3) gm/dl Albumin 4.6 (3.4-5.0) gm/dl Globulin Cancelled 2.9 Albumin/Globulin Ratio Cancelled 1.6 Procalcitonin 0.09 (0-0.5) ng/ml Adenovirus (PCR) (NotDetected) B. pertussis DNA (PCR) (NotDetected) B.parapertussis DNA PCR (NotDetected) C. pneumoniae DNA (PCR) (NotDetected) Coronavirus OC43 (PCR) (NotDetected) Coronavirus HKU1 (PCR) (NotDetected) Coronavirus 229E (PCR) (NotDetected) SARS-CoV-2 (PCR) (NotDetected) Coronavirus NL63 (PCR) (NotDetected) Human Metapneumovir PCR (NotDetected) Influenza A (H3) PCR (NotDetected) Influenza Type B (PCR) (NotDetected) M. pneumoniae (PCR) (NotDetected) Parainfluenza 1 (PCR) (NotDetected) Parainfluenza 2 (PCR) (NotDetected) Parainfluenza 3 (PCR) (NotDetected) Parainfluenza 4 (PCR) (NotDetected) RSV (PCR) (NotDetected) Entero/Rhino (PCR) (NotDetected) 03/20/24 03/20/24 Range/Units 23:12 23:20 WBC (4.8-10.8) K/ul RBC (4.20-5.40) M/uL Hgb (12.0-16.0) g/dl Hct (37.0-47.0) % MCV (80.0-100.0) fL MCH (25.0-34.0) pg MCHC (32.0-36.0) g/dL RDW Std Deviation (36.4-46.3) fL RDW Coeff of Crystal (11.5-14.5) % Plt Count (130-400) K/uL MPV (9.4-12.4) fL Immature Gran % (Auto) % Neut % (Auto) % Lymph % (Auto) % Bledsoe % (Auto) % Eos % (Auto) % Baso % (Auto) % Neut # (Auto) (1.40-6.50) K/uL Lymph # (Auto) (1.20-3.40) K/uL Bledsoe # (Auto) (0.11-0.59) K/uL Eos # (Auto) (0.00-0.50) K/uL Baso # (Auto) (0.00-0.20) K/uL Immature Gran # (Auto) (0.01-0.20) K/uL PT (9.0-12.0) Seconds INR (0.9-1.1) APTT (21-31) Seconds PTT Ratio VBG pH (7.36-7.41) VBG pCO2 (38-50) mmHg VBG pO2 mmHg VBG HCO3 mmol/L VBG O2 Saturation % VBG Base Excess mEq/L Sodium Potassium Chloride Carbon Dioxide Anion Gap BUN Creatinine Est Cr Clr Drug Dosing eGFR BUN/Creatinine Ratio Glucose Lactate (0.4-2.0) mmol/L Calcium Magnesium (1.7-2.4) mg/dl Total Bilirubin (0.2-1.0) mg/dl Direct Bilirubin (0-0.2) mg/dl AST (13-39) U/L ALT (7-52) U/L Alkaline Phosphatase (34-104) U/L Troponin I High Sens (0-14) pg/ml B-Natriuretic Peptide 40 (0-100) pg/ml Total Protein (6.0-8.3) gm/dl Albumin (3.4-5.0) gm/dl Globulin Albumin/Globulin Ratio Procalcitonin (0-0.5) ng/ml Adenovirus (PCR) Not Detected (NotDetected) B. pertussis DNA (PCR) Not Detected (NotDetected) B.parapertussis DNA PCR Not Detected (NotDetected) C. pneumoniae DNA (PCR) Not Detected (NotDetected) Coronavirus OC43 (PCR) Not Detected (NotDetected) Coronavirus HKU1 (PCR) Not Detected (NotDetected) Coronavirus 229E (PCR) Not Detected (NotDetected) SARS-CoV-2 (PCR) Not Detected (NotDetected) Coronavirus NL63 (PCR) Not Detected (NotDetected) Human Metapneumovir PCR Not Detected (NotDetected) Influenza A (H3) PCR DETECTED A (NotDetected) Influenza Type B (PCR) Not Detected (NotDetected) M. pneumoniae (PCR) Not Detected (NotDetected) Parainfluenza 1 (PCR) Not Detected (NotDetected) Parainfluenza 2 (PCR) Not Detected (NotDetected) Parainfluenza 3 (PCR) Not Detected (NotDetected) Parainfluenza 4 (PCR) Not Detected (NotDetected) RSV (PCR) Not Detected (NotDetected) Entero/Rhino (PCR) Not Detected (NotDetected) Imaging Data Attestation: I personally reviewed and interpreted this imaging study as follows: Radiologist's Impression: Chest X-Ray 03/20/24 22:19 Exam(s): XR CXR 1 VIEW EXAM: XR Chest, 1 View CLINICAL HISTORY: Reason for exam: SOB, CP. TECHNIQUE: Frontal view of the chest. COMPARISON: No relevant prior studies available. FINDINGS: Lungs: Mildly prominent interstitial markings throughout both lungs suggesting mild emphysema, similar to previous. No new infiltrates are identified. Pleural space: Unremarkable. No pneumothorax. Heart: Borderline mild cardiomegaly. No evidence of edema. Probable 5 cm hiatal hernia projecting behind the heart. Mediastinum: Unremarkable. Normal mediastinal contour. Bones/joints: Unremarkable. No acute fracture. Upper abdomen: Unremarkable as visualized. No pneumoperitoneum under the diaphragm. IMPRESSION: 1. Mildly prominent interstitial markings throughout both lungs suggesting mild emphysema, similar to previous. No new infiltrates are identified. 2. Borderline mild cardiomegaly. No evidence of edema. 3. Probable 5 cm hiatal hernia projecting behind the heart. Electronically signed by: Lito Anaya MD 03/20/24 23:35 PM MDM Narrative Prior records/ancillary studies reviewed. Triage Nursing notes reviewed. Additional history obtained from the family. The patient's history was concerning for respiratory difficulties. Differential diagnosis: Etiologies such as infections, reactive airway disease, pneumonia, pneumothorax, COPD, CHF, cardiac ischemia, pulmonary embolism, musculoskeletal, gastrointestinal, as well as others were entertained. Physical examination: As above. ER treatment provided: An order was placed for continuous cardiac monitoring. The monitor shows a rate of 60-1 20 with a sinus rhythm per my interpretation. Nebulizer, Solu-Medrol, Tylenol, Tamiflu On reassessment the patient felt better. Diagnostic interpretation by me: The electrocardiogram was ordered for SOB. ECG: Normal sinus, poor baseline, no acute ST-T wave changes, prolonged QTc, rate of 110. Impression sinus tachycardia independently interpreted by myself The labs Independently Interpreted by myself revealed positive influenza A Blood cultures pending Minimally elevated troponin and repeat was ordered. Most likely type II No worrisome leukocytosis Imaging studies: Chest x-ray with no acute consolidation, pneumothorax or free air per my independent termination. Consultation: A consultation was placed with the hospitalist. The case was discussed and diagnostics were reviewed. The patient was evaluated in the ER for further treatment. This appears to be consistent with influenza A with COPD exacerbation who is hypoxic. Patient was medicated as above. Medicine was consulted and the case discussed she will be admitted to the medical service. Patient is agreeable. She did improve with the medicines as above. She did still require oxygen so she will be admitted. By the evaluation outlined above emergent etiologies such as CHF, cardiac ischemia, pulmonary embolism, reactive airway disease, pneumonia, pneumothorax, musculoskeletal, serious bacterial infections, as well as others were deemed relatively unlikely. The pt informed about the findings as listed above. All questions were answered and pleased with the treatment. The chart was completed utilizing [employer] Speech voice recognition software. Grammatical errors, random word insertions, pronoun errors, and incomplete sentences are an occassional consequence of this system due to software limitations, ambient noise, and hardware issues. Any formal questions or concerns about the content, text, or information contained within the body of this dictation should be directly addressed to the physician licensed loan officer assistant for clarification. Impression & Plan Acute exacerbation of chronic obstructive airways disease, Influenza A, Hypoxemia Discharge Plan Visit Data Chief Complaint: Shortness of Breath/Dyspnea Stated Complaint: short of breath, weekness ED Provider: Tony Contreras ED Midlevel Provider: Stefani Zimmer Discharge Problem: Acute exacerbation of chronic obstructive airways disease, Influenza A, Hypoxemia Patient Disposition: Admitted As Inpatient Condition: Fair Forms Stand Alone Forms: [facility] Prescriptions Prescriptions: No Action atorvastatin 80 mg Tablet 80 mg PO HS zinc acetate 50 mg (zinc) Capsule 50 mg PO QAM aspirin 81 mg Tablet,Delayed Release (Dr/Ec) 81 mg PO QAM cholecalciferol (vitamin D3) [Vitamin D3] 125 mcg (5,000 unit) Tablet 125 mcg PO QAM insulin aspart U-100 [Novolog U-100 Insulin aspart] 100 unit/mL Solution 1 sliding scale dose continuous subcutaneous infusion CONTINOUS Rx Instructions: via pump omeprazole 20 mg capsule,delayed release(DR/EC) 20 mg PO DAILY Qty: 1 0RF albuterol sulfate [Ventolin HFA] 90 mcg/actuation HFA aerosol inhaler 2 inh inhalation Q6H PRN (Reason: shortness of breath or wheezing) Qty: 6.7 0RF ipratropium-albuterol 0.5 mg-3 mg(2.5 mg base)/3 mL solution for nebulization 3 ml inhalation Q6H PRN (Reason: wheezing) Qty: 90 0RF mirabegron [Myrbetriq] 25 mg Tablet Extended Release 24 Hr 0 mg PO DAILY Rx Instructions: PT UNSURE OF STRENGTH, UNABLE TO VERIFY fluticasone furoate-vilanterol [Breo Ellipta] 100-25 mcg/dose Blister With Device 1 inh INHALATION Q OTHER DAY Referrals Referrals: Isabela Ayers D.O. [Primary Care Provider] -
[2024-03-20 22:47] LABS: Base Excess VBG 2.5 mEq/L; HCO3 VBG 28 mmol/L; Oxygen Saturation VBG < 60.0 %; PCO2 VBG 45 mmHg (38-50); PO2 VBG 37 mmHg
[2024-03-20 23:02] LABS: Basophils # (auto) 0.04 K/uL (0.00-0.20); Basophils % (auto) 0.5 %; Eosinophils % (auto) 2.5 %; Hematocrit (blood only) 41.7 % (37.0-47.0); Hemoglobin 13.6 g/dl (12.0-16.0); Immature Granulocytes # (auto) 0.03 K/uL (0.01-0.20); Immature Granulocytes % (auto) 0.4 %; Lymphocytes # (auto) 0.28 K/uL (1.20-3.40); Lymphocytes % (auto) 3.5 %; Mean Corpuscular Hemoglobin 28.8 pg (25.0-34.0); Mean Corpuscular Hgb Conc 32.6 g/dL (32.0-36.0); Mean Corpuscular Volume 88.2 fL (80.0-100.0); Mean Platelet Volume 10.1 fL (9.4-12.4); Monocytes # (auto) 0.34 K/uL (0.11-0.59); Monocytes % (auto) 4.3 %; Neutrophils # (auto) 7.02 K/uL (1.40-6.50); Neutrophils % (auto) 88.8 %; Platelet Count 183 K/uL (130-400); RDW Coefficient of Variation 12.6 % (11.5-14.5); RDW Standard Deviation 40.9 fL (36.4-46.3); Red Blood Count 4.73 M/uL (4.20-5.40); White Blood Count 7.91 K/ul (4.8-10.8)
[2024-03-20 23:12] LABS: Albumin Level 4.4 gm/dl (3.4-5.0); Bilirubin Direct 0.1 mg/dl (0-0.2); Bilirubin,Total 0.5 mg/dl (0.2-1.0); Magnesium 1.7 mg/dl (1.7-2.4); Total Protein 7.5 gm/dl (6.0-8.3)
[2024-03-20 23:18] LABS: Troponin I High Sensitivity 14.6 pg/ml (0-14)
[2024-03-20 23:31] LABS: Partial Thromboplastin Ratio 0.9; Partial Thromboplastin Time 23 Seconds (21-31); Prothrombin Time 10.5 Seconds (9.0-12.0)
--- NOTE | 2024-03-20 23:36 | XRay Report ---
Exam(s): XR CXR 1 VIEW EXAM: XR Chest, 1 View CLINICAL HISTORY: Reason for exam: SOB, CP. TECHNIQUE: Frontal view of the chest. COMPARISON: No relevant prior studies available. FINDINGS: Lungs: Mildly prominent interstitial markings throughout both lungs suggesting mild emphysema, similar to previous. No new infiltrates are identified. Pleural space: Unremarkable. No pneumothorax. Heart: Borderline mild cardiomegaly. No evidence of edema. Probable 5 cm hiatal hernia projecting behind the heart. Mediastinum: Unremarkable. Normal mediastinal contour. Bones/joints: Unremarkable. No acute fracture. Upper abdomen: Unremarkable as visualized. No pneumoperitoneum under the diaphragm. IMPRESSION: 1. Mildly prominent interstitial markings throughout both lungs suggesting mild emphysema, similar to previous. No new infiltrates are identified. 2. Borderline mild cardiomegaly. No evidence of edema. 3. Probable 5 cm hiatal hernia projecting behind the heart. Electronically signed by: Lito Anaya MD 03/20/24 23:35 PM
--- NOTE | 2024-03-20 23:42 | Emergency Department Note ---
ED Visit Note I was consulted by the Advanced Practice Provider, Stefani Zimmer PA-C. I personally made/approved the management plan and take responsibility for the patient management. I performed a substantive portion of the visit. This includes the aspects of: -MDM: Patient with respiratory symptoms and mild fever. No pneumonia on x-ray. Bio[employer] testing performed. Patient is influenza positive. -I independently interpreted the following studies: Chest x-ray. Findings: A chest x-ray was performed and revealed no pneumothorax, effusion, infiltrate, pulmonary edema, free air under the diaphragm, or wide mediastinum. Impression: No acute disease. .
[2024-03-21 00:03] LABS: Albumin Level 4.6 gm/dl (3.4-5.0); Bilirubin,Total 0.5 mg/dl (0.2-1.0); Calcium 9.3 mg/dl (8.6-10.3); Potassium 4.1 mmol/L (3.5-5.1)
[2024-03-21 00:09] LABS: Albumin Globulin Ratio 1.6 (0.9-2); Creatinine Clr Calc Pharmacy 51.9 ml/min; Globulin 2.9 gm/dl (2.5-4.0); Total Protein 7.5 gm/dl (6.0-8.3)
[2024-03-21 00:18] LABS: Adenovirus PCR Not Detected (NotDetected); Bordetella parapertussis PCR Not Detected (NotDetected); Bordetella pertussis PCR Not Detected (NotDetected); Chlamydia pneumoniae PCR Not Detected (NotDetected); Coronavirus 229E PCR Not Detected (NotDetected); Coronavirus CoV-2 (COVID19)PCR Not Detected (NotDetected); Coronavirus HKU1 PCR Not Detected (NotDetected); Coronavirus NL63 PCR Not Detected (NotDetected); Coronavirus OC43PCR Not Detected (NotDetected); Human Metapneumovirus PCR Not Detected (NotDetected); Influenza A (H3) PCR DETECTED (NotDetected); Influenza B PCR Not Detected (NotDetected); Mycoplasma pneumoniae PCR Not Detected (NotDetected); Parainfluenza Virus 1 PCR Not Detected (NotDetected); Parainfluenza Virus 2 PCR Not Detected (NotDetected); Parainfluenza Virus 3 PCR Not Detected (NotDetected); Parainfluenza Virus 4 PCR Not Detected (NotDetected); Respiratory Syncytial VirusPCR Not Detected (NotDetected); Rhinovirus/Enterovirus PCR Not Detected (NotDetected)
--- NOTE | 2024-03-21 01:40 | History & Physical Report ---
Date of Service March 21, 2024 Assessment & Plan (1) Acute hypoxic respiratory failure: (2) Influenza A: Plan 68-year-old female PMHx COPD, ovarian cancer, GERD, HTN, HLD, and DM presenting to ED for shortness of breath. 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 CXR w/o evidence of new infiltrates. CBC + procal grossly WNL. Presence of wheezing on exam, requiring O2 and found to have Flu A. Admission for hypoxic, COPD exacerbation, and management of flu A. #Acute hypoxic respiratory failure/Influenza A/COPD exacerbation H/o COPD w/ previous exacerbations requiring admission. CXR without evidence of new infiltrates; CBC grossly WNL and procalcitonin WNL. Requiring O2 via NC, none at baseline. - FV+ IC; No O2 at baseline; O2 via NC prn; wean as patient tolerates - Methylprednisolone 40mg IV BID; Tamiflu BID x 5 days total - Duonebs q4hr; budesonide + formoterol nebs BID - Doxycycline for COPD exacerbation management- Prolonged QT on initial EKG - Droplet precautions #Elevated troponin No current chest pain, palpitations, or symptoms concerning of such. - Troponin 14.6 on admission, pending repeat; EKG w/o ischemic changes - Likely 2/2 demand #Diabetes mellitus H/o DM, insulin dependent; Dexcom in place. - A1c 2021 @ 8.0%; no repeat at time of admission - Defer SSI at time of admission but will monitor and adjust as appropriate - BSG ACHS #HLD- Atorvastatin #Bladder spasms- Myrbetriq #GERD- Omeprazole Alkaline phosphatase elevated at time of admission; appears to be chronic finding for patinet per prior labs; patient not having any additional symptoms suggestive of acute changes at time of admission. Dispo: Admit med/tele VTE prophylaxis: Lovenox This document was dictated utilizing [employer]. Please excuse any grammatical errors that may be secondary to use of this software. Admission and Anticipated Discharge Date Admission Date: 03/21/2024 History of Present Illness Chief Complaint: SOB Primary Care Provider: Isabela Ayers 68-year-old female PMHx COPD, ovarian cancer, GERD, HTN, HLD, and DM presenting to ED for shortness of breath. 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 States that she has a productive cough, but is unsure what the quality of sputum looks like. Has felt feverish, but declines actually taking her temperature. Did use nebulizer treatment morning prior to arrival but did not find much relief. Sick contacts include her grandchildren. CBC revealed no acute findings and CMP was grossly WNL with exception of alkaline phosphatase at 127. Procalcitonin was 0.09, BNP was 40, and CXR revealed mildly prominent interstitial markings throughout both lungs suggestive of mild emphysema as well as a possible 5 cm hiatal hernia. Otherwise VBG's are stable, patient has anion gap of 12, and troponin was elevated at 14.6 and pending repeat but with EKG revealing no ischemic changes patient denying any chest pain. Patient was provided with Tamiflu, methylprednisolone, acetaminophen, and albuterol in the ED. Please see Dr. Anaya's attestation for adjustments/additions to treatment plan. Allergies Allergy/AdvReac Type Severity Reaction Status Date / Time Penicillins Allergy Intermediate RASH Verified 03/21/24 00:47 lisinopril AdvReac Intermediate COUGH Verified 03/21/24 00:47 Home Medications Medication Instructions Recorded Confirmed Type aspirin 81 mg tablet,delayed 81 mg PO QAM 02/19/22 03/21/24 History release atorvastatin 80 mg tablet 80 mg PO HS 02/19/22 03/21/24 History cholecalciferol (vitamin D3) 125 125 mcg PO QAM 02/19/22 03/21/24 History mcg (5,000 unit) tablet (Vitamin D3) insulin aspart U-100 100 unit/mL 1 sliding scale dose continuous 02/19/22 03/21/24 History subcutaneous solution (Novolog subcutaneous infusion CONTINOUS U-100 Insulin aspart) zinc acetate 50 mg (zinc) capsule 50 mg PO QAM 02/19/22 03/21/24 History albuterol sulfate 90 mcg/actuation 2 inh inhalation Q6H PRN shortness 02/21/22 03/21/24 Rx aerosol inhaler (Ventolin HFA) of breath or wheezing #6.7 grams omeprazole 20 mg capsule,delayed 20 mg PO DAILY #1 cap 02/21/22 03/21/24 Rx release ipratropium 0.5 mg-albuterol 3 mg 3 ml inhalation Q6H PRN wheezing 05/21/22 03/21/24 Rx (2.5 mg base)/3 mL nebulization #90 mL soln fluticasone furoate 100 1 inh inhalation Q OTHER DAY 10/19/23 03/21/24 History mcg-vilanterol 25 mcg/dose inhalation powder (Breo Ellipta) mirabegron 25 mg tablet,extended 25 mg PO DAILY 10/19/23 03/21/24 History release 24 hr (Myrbetriq) Past Med/Surg History Problem List Acute hypoxic respiratory failure Hypoxemia (Acute) Influenza A (Acute) Acute exacerbation of chronic obstructive airways disease (Acute) Multiple fractures of ribs of right side (Acute) Status post right rotator cuff repair Pneumonia (Acute) Ovarian cancer (Chronic) Incidental pulmonary nodule (Acute) Right shoulder strain (Acute) Medical History GERD (gastroesophageal reflux disease) Hypomagnesemia Bladder spasms Influenza A Acute exacerbation of COPD with asthma Hyperlipidemia Diabetes HTN (hypertension) Social History Smoking Status: Former smoker Tobacco Type: Cigarettes Second Hand Exposure: Yes; Do You Dip or Chew Tobacco: No; Hx Alcohol Use: No Hx Substance Use: No Preferred Language: Haitian Communication Ability: Effective 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 No cyanosis Head: Normocephalic, atraumatic Eyes: PERRL, conjunctivae clear, sclera non-icteric ENT: External ear and ear canal without swelling; nose atraumatic; good dentitio n, tongue normal appearance Neck: Supple, no LAD Cardio: Tachycardia, regular rhythm, no M/G/R, S1 and S2 normal Resp: No respiratory distress, expiratory inspiratory wheezing throughout all lung cuevas otherwise lungs CTA without rales or rhonchi Abdomen: Soft, symmetric, nontender; No visible lesions or scars; no distention; No masses or hepatosplenomegaly; Bowel sounds normoactive MSK: No deformities, full ROM throughout; pulses palpable and equal; no edema. Neuro: Awake, alert; CN grossly intact Psych: Appropriate mood and affect; good judgement and insight. Results & Data Results & Data Vital Signs (Past 12 Hours) Vital Signs Temp Pulse Resp BP Pulse Ox O2 Del Method O2 Flow Rate 03/21/24 01:24 98 H 19 92 03/21/24 01:12 102 H 21 90 03/21/24 01:00 103 H 22 92 03/21/24 01:00 119/55 L 03/21/24 01:00 119/55 L 03/21/24 01:00 119/55 L 03/21/24 00:51 102 H 20 92 03/21/24 00:48 105 H 19 92 03/21/24 00:33 105 H 21 92 03/21/24 00:30 116/53 L 03/21/24 00:21 108 H 23 90 Nasal Cannula 4 03/21/24 00:15 111 H 21 91 03/21/24 00:08 Nasal Cannula 03/21/24 00:03 111 H 18 92 03/21/24 00:00 118/49 L 03/20/24 23:36 113 H 22 92 03/20/24 23:30 117/57 L 03/20/24 23:21 114 H 24 93 03/20/24 23:21 Room Air 03/20/24 23:14 Nasal Cannula 3 03/20/24 23:12 123 H 22 95 03/20/24 23:00 117 H 26 H 100 03/20/24 23:00 131/75 03/20/24 23:00 131/75 03/20/24 23:00 131/75 03/20/24 22:57 116 H 23 100 03/20/24 22:49 128/92 03/20/24 22:49 128/92 03/20/24 22:49 128/92 03/20/24 22:27 109 H 27 H 98 Nasal Cannula 2 03/20/24 22:21 Nasal Cannula 03/20/24 22:21 Nasal Cannula 03/20/24 22:17 137/72 03/20/24 22:17 137/72 86 L Room Air 03/20/24 22:17 109 H 03/20/24 22:09 37.7 C H 108 H 28 H 147/59 H 88 L Room Air Laboratory Results 03/20/24 23:12 Aerobic Blood Culture - Pending Blood Anaerobic Blood Culture - Pending 03/20/24 22:34 Aerobic Blood Culture - Pending Blood Anaerobic Blood Culture - Pending 03/20/24 03/20/24 03/20/24 23:20 23:12 22:34 WBC RBC Hgb Hct MCV MCH MCHC RDW Std Deviation RDW Coeff of Crystal Plt Count MPV Immature Gran % (Auto) Neut % (Auto) Lymph % (Auto) Gila % (Auto) Eos % (Auto) Baso % (Auto) Neut # (Auto) Lymph # (Auto) Gila # (Auto) Eos # (Auto) Baso # (Auto) Immature Gran # (Auto) PT INR APTT PTT Ratio VBG pH VBG pCO2 VBG pO2 VBG HCO3 VBG O2 Saturation VBG Base Excess Sodium Potassium Chloride Carbon Dioxide Anion Gap BUN Creatinine Est Cr Clr Drug Dosing eGFR BUN/Creatinine Ratio Glucose Lactate Calcium Magnesium Total Bilirubin Direct Bilirubin AST ALT Alkaline Phosphatase Troponin I High Sens B-Natriuretic Peptide 40 Total Protein Albumin Globulin Albumin/Globulin Ratio 1.6 Procalcitonin 0.09 Adenovirus (PCR) Not Detected B. pertussis DNA (PCR) Not Detected B.parapertussis DNA PCR Not Detected C. pneumoniae DNA (PCR) Not Detected Coronavirus OC43 (PCR) Not Detected Coronavirus HKU1 (PCR) Not Detected Coronavirus 229E (PCR) Not Detected SARS-CoV-2 (PCR) Not Detected Coronavirus NL63 (PCR) Not Detected Human Metapneumovir PCR Not Detected Influenza A (H3) PCR DETECTED A Influenza Type B (PCR) Not Detected M. pneumoniae (PCR) Not Detected Parainfluenza 1 (PCR) Not Detected Parainfluenza 2 (PCR) Not Detected Parainfluenza 3 (PCR) Not Detected Parainfluenza 4 (PCR) Not Detected RSV (PCR) Not Detected Entero/Rhino (PCR) Not Detected 03/20/24 03/20/24 03/20/24 22:34 22:34 22:34 WBC RBC Hgb Hct MCV MCH MCHC RDW Std Deviation RDW Coeff of Crystal Plt Count MPV Immature Gran % (Auto) Neut % (Auto) Lymph % (Auto) Gila % (Auto) Eos % (Auto) Baso % (Auto) Neut # (Auto) Lymph # (Auto) Gila # (Auto) Eos # (Auto) Baso # (Auto) Immature Gran # (Auto) PT INR APTT PTT Ratio VBG pH VBG pCO2 VBG pO2 VBG HCO3 VBG O2 Saturation VBG Base Excess Sodium Potassium Chloride Carbon Dioxide Anion Gap BUN Creatinine Est Cr Clr Drug Dosing eGFR BUN/Creatinine Ratio Glucose Lactate Calcium Magnesium Total Bilirubin Direct Bilirubin AST ALT Alkaline Phosphatase Troponin I High Sens B-Natriuretic Peptide Total Protein 7.5 Albumin 4.6 4.4 Globulin 2.9 Cancelled Albumin/Globulin Ratio Cancelled Procalcitonin Adenovirus (PCR) B. pertussis DNA (PCR) B.parapertussis DNA PCR C. pneumoniae DNA (PCR) Coronavirus OC43 (PCR) Coronavirus HKU1 (PCR) Coronavirus 229E (PCR) SARS-CoV-2 (PCR) Coronavirus NL63 (PCR) Human Metapneumovir PCR Influenza A (H3) PCR Influenza Type B (PCR) M. pneumoniae (PCR) Parainfluenza 1 (PCR) Parainfluenza 2 (PCR) Parainfluenza 3 (PCR) Parainfluenza 4 (PCR) RSV (PCR) Entero/Rhino (PCR) 03/20/24 03/20/24 03/20/24 22:34 22:34 22:34 WBC RBC Hgb Hct MCV MCH MCHC RDW Std Deviation RDW Coeff of Crystal Plt Count MPV Immature Gran % (Auto) Neut % (Auto) Lymph % (Auto) Gila % (Auto) Eos % (Auto) Baso % (Auto) Neut # (Auto) Lymph # (Auto) Gila # (Auto) Eos # (Auto) Baso # (Auto) Immature Gran # (Auto) PT INR APTT PTT Ratio VBG pH VBG pCO2 VBG pO2 VBG HCO3 VBG O2 Saturation VBG Base Excess Sodium Potassium Chloride Carbon Dioxide Anion Gap BUN Creatinine Est Cr Clr Drug Dosing eGFR BUN/Creatinine Ratio Glucose Lactate Calcium Magnesium Total Bilirubin Direct Bilirubin AST 39 ALT 48 48 Alkaline Phosphatase 127 H 128 H Troponin I High Sens 14.6 H B-Natriuretic Peptide Total Protein 7.5 Albumin Globulin Albumin/Globulin Ratio Procalcitonin Adenovirus (PCR) B. pertussis DNA (PCR) B.parapertussis DNA PCR C. pneumoniae DNA (PCR) Coronavirus OC43 (PCR) Coronavirus HKU1 (PCR) Coronavirus 229E (PCR) SARS-CoV-2 (PCR) Coronavirus NL63 (PCR) Human Metapneumovir PCR Influenza A (H3) PCR Influenza Type B (PCR) M. pneumoniae (PCR) Parainfluenza 1 (PCR) Parainfluenza 2 (PCR) Parainfluenza 3 (PCR) Parainfluenza 4 (PCR) RSV (PCR) Entero/Rhino (PCR) 03/20/24 03/20/24 03/20/24 22:34 22:34 22:34 WBC RBC Hgb Hct MCV MCH MCHC RDW Std Deviation RDW Coeff of Crystal Plt Count MPV Immature Gran % (Auto) Neut % (Auto) Lymph % (Auto) Gila % (Auto) Eos % (Auto) Baso % (Auto) Neut # (Auto) Lymph # (Auto) Gila # (Auto) Eos # (Auto) Baso # (Auto) Immature Gran # (Auto) PT INR APTT PTT Ratio VBG pH VBG pCO2 VBG pO2 VBG HCO3 VBG O2 Saturation VBG Base Excess Sodium Potassium Chloride Carbon Dioxide Anion Gap BUN Creatinine Est Cr Clr Drug Dosing eGFR BUN/Creatinine Ratio Glucose 179 H Lactate 1.9 Calcium 9.3 Cancelled Magnesium 1.7 Total Bilirubin 0.5 0.5 Direct Bilirubin 0.1 AST 38 ALT Alkaline Phosphatase Troponin I High Sens B-Natriuretic Peptide Total Protein Albumin Globulin Albumin/Globulin Ratio Procalcitonin Adenovirus (PCR) B. pertussis DNA (PCR) B.parapertussis DNA PCR C. pneumoniae DNA (PCR) Coronavirus OC43 (PCR) Coronavirus HKU1 (PCR) Coronavirus 229E (PCR) SARS-CoV-2 (PCR) Coronavirus NL63 (PCR) Human Metapneumovir PCR Influenza A (H3) PCR Influenza Type B (PCR) M. pneumoniae (PCR) Parainfluenza 1 (PCR) Parainfluenza 2 (PCR) Parainfluenza 3 (PCR) Parainfluenza 4 (PCR) RSV (PCR) Entero/Rhino (PCR) 03/20/24 03/20/24 03/20/24 22:34 22:34 22:34 WBC RBC Hgb Hct MCV MCH MCHC RDW Std Deviation RDW Coeff of Crystal Plt Count MPV Immature Gran % (Auto) Neut % (Auto) Lymph % (Auto) Gila % (Auto) Eos % (Auto) Baso % (Auto) Neut # (Auto) Lymph # (Auto) Gila # (Auto) Eos # (Auto) Baso # (Auto) Immature Gran # (Auto) PT INR APTT PTT Ratio VBG pH VBG pCO2 VBG pO2 VBG HCO3 VBG O2 Saturation VBG Base Excess Sodium Potassium Chloride Carbon Dioxide Anion Gap BUN Creatinine Est Cr Clr Drug Dosing 51.9 eGFR 60.61 Cancelled BUN/Creatinine Ratio 23.0 H Cancelled Glucose Cancelled Lactate Calcium Magnesium Total Bilirubin Direct Bilirubin AST ALT Alkaline Phosphatase Troponin I High Sens B-Natriuretic Peptide Total Protein Albumin Globulin Albumin/Globulin Ratio Procalcitonin Adenovirus (PCR) B. pertussis DNA (PCR) B.parapertussis DNA PCR C. pneumoniae DNA (PCR) Coronavirus OC43 (PCR) Coronavirus HKU1 (PCR) Coronavirus 229E (PCR) SARS-CoV-2 (PCR) Coronavirus NL63 (PCR) Human Metapneumovir PCR Influenza A (H3) PCR Influenza Type B (PCR) M. pneumoniae (PCR) Parainfluenza 1 (PCR) Parainfluenza 2 (PCR) Parainfluenza 3 (PCR) Parainfluenza 4 (PCR) RSV (PCR) Entero/Rhino (PCR) 03/20/24 03/20/24 03/20/24 22:34 22:34 22:34 WBC RBC Hgb Hct MCV MCH MCHC RDW Std Deviation RDW Coeff of Crystal Plt Count MPV Immature Gran % (Auto) Neut % (Auto) Lymph % (Auto) Gila % (Auto) Eos % (Auto) Baso % (Auto) Neut # (Auto) Lymph # (Auto) Gila # (Auto) Eos # (Auto) Baso # (Auto) Immature Gran # (Auto) PT INR APTT PTT Ratio VBG pH VBG pCO2 VBG pO2 VBG HCO3 VBG O2 Saturation VBG Base Excess Sodium Potassium Chloride Carbon Dioxide Anion Gap 12 H BUN 23 Cancelled Creatinine 1.00 Cancelled Est Cr Clr Drug Dosing Cancelled eGFR BUN/Creatinine Ratio Glucose Lactate Calcium Magnesium Total Bilirubin Direct Bilirubin AST ALT Alkaline Phosphatase Troponin I High Sens B-Natriuretic Peptide Total Protein Albumin Globulin Albumin/Globulin Ratio Procalcitonin Adenovirus (PCR) B. pertussis DNA (PCR) B.parapertussis DNA PCR C. pneumoniae DNA (PCR) Coronavirus OC43 (PCR) Coronavirus HKU1 (PCR) Coronavirus 229E (PCR) SARS-CoV-2 (PCR) Coronavirus NL63 (PCR) Human Metapneumovir PCR Influenza A (H3) PCR Influenza Type B (PCR) M. pneumoniae (PCR) Parainfluenza 1 (PCR) Parainfluenza 2 (PCR) Parainfluenza 3 (PCR) Parainfluenza 4 (PCR) RSV (PCR) Entero/Rhino (PCR) 03/20/24 03/20/24 03/20/24 22:34 22:34 22:34 WBC RBC Hgb Hct MCV MCH MCHC RDW Std Deviation RDW Coeff of Crystal Plt Count MPV Immature Gran % (Auto) Neut % (Auto) Lymph % (Auto) Gila % (Auto) Eos % (Auto) Baso % (Auto) Neut # (Auto) Lymph # (Auto) Gila # (Auto) Eos # (Auto) Baso # (Auto) Immature Gran # (Auto) PT INR APTT PTT Ratio VBG pH VBG pCO2 VBG pO2 VBG HCO3 VBG O2 Saturation VBG Base Excess Sodium Potassium 4.1 Chloride 101 Cancelled Carbon Dioxide 24 Cancelled Anion Gap Cancelled BUN Creatinine Est Cr Clr Drug Dosing eGFR BUN/Creatinine Ratio Glucose Lactate Calcium Magnesium Total Bilirubin Direct Bilirubin AST ALT Alkaline Phosphatase Troponin I High Sens B-Natriuretic Peptide Total Protein Albumin Globulin Albumin/Globulin Ratio Procalcitonin Adenovirus (PCR) B. pertussis DNA (PCR) B.parapertussis DNA PCR C. pneumoniae DNA (PCR) Coronavirus OC43 (PCR) Coronavirus HKU1 (PCR) Coronavirus 229E (PCR) SARS-CoV-2 (PCR) Coronavirus NL63 (PCR) Human Metapneumovir PCR Influenza A (H3) PCR Influenza Type B (PCR) M. pneumoniae (PCR) Parainfluenza 1 (PCR) Parainfluenza 2 (PCR) Parainfluenza 3 (PCR) Parainfluenza 4 (PCR) RSV (PCR) Entero/Rhino (PCR) 03/20/24 03/20/24 22:34 22:34 WBC 7.91 RBC 4.73 Hgb 13.6 Hct 41.7 MCV 88.2 MCH 28.8 MCHC 32.6 RDW Std Deviation 40.9 RDW Coeff of Crystal 12.6 Plt Count 183 MPV 10.1 Immature Gran % (Auto) 0.4 Neut % (Auto) 88.8 Lymph % (Auto) 3.5 Gila % (Auto) 4.3 Eos % (Auto) 2.5 Baso % (Auto) 0.5 Neut # (Auto) 7.02 H Lymph # (Auto) 0.28 L Gila # (Auto) 0.34 Eos # (Auto) 0.20 Baso # (Auto) 0.04 Immature Gran # (Auto) 0.03 PT 10.5 INR 1.0 APTT 23 PTT Ratio 0.9 VBG pH 7.40 VBG pCO2 45 VBG pO2 37 VBG HCO3 28 VBG O2 Saturation < 60.0 VBG Base Excess 2.5 Sodium 137 Cancelled Potassium Cancelled Chloride Carbon Dioxide Anion Gap BUN Creatinine Est Cr Clr Drug Dosing eGFR BUN/Creatinine Ratio Glucose Lactate Calcium Magnesium Total Bilirubin Direct Bilirubin AST ALT Alkaline Phosphatase Troponin I High Sens B-Natriuretic Peptide Total Protein Albumin Globulin Albumin/Globulin Ratio Procalcitonin Adenovirus (PCR) B. pertussis DNA (PCR) B.parapertussis DNA PCR C. pneumoniae DNA (PCR) Coronavirus OC43 (PCR) Coronavirus HKU1 (PCR) Coronavirus 229E (PCR) SARS-CoV-2 (PCR) Coronavirus NL63 (PCR) Human Metapneumovir PCR Influenza A (H3) PCR Influenza Type B (PCR) M. pneumoniae (PCR) Parainfluenza 1 (PCR) Parainfluenza 2 (PCR) Parainfluenza 3 (PCR) Parainfluenza 4 (PCR) RSV (PCR) Entero/Rhino (PCR) Diagnostic Findings Chest X-Ray 03/20/24 22:19 Exam(s): XR CXR 1 VIEW EXAM: XR Chest, 1 View CLINICAL HISTORY: Reason for exam: SOB, CP. TECHNIQUE: Frontal view of the chest. COMPARISON: No relevant prior studies available. FINDINGS: Lungs: Mildly prominent interstitial markings throughout both lungs suggesting mild emphysema, similar to previous. No new infiltrates are identified. Pleural space: Unremarkable. No pneumothorax. Heart: Borderline mild cardiomegaly. No evidence of edema. Probable 5 cm hiatal hernia projecting behind the heart. Mediastinum: Unremarkable. Normal mediastinal contour. Bones/joints: Unremarkable. No acute fracture. Upper abdomen: Unremarkable as visualized. No pneumoperitoneum under the diaphragm. IMPRESSION: 1. Mildly prominent interstitial markings throughout both lungs suggesting mild emphysema, similar to previous. No new infiltrates are identified. 2. Borderline mild cardiomegaly. No evidence of edema. 3. Probable 5 cm hiatal hernia projecting behind the heart. Electronically signed by: Lito Anaya MD 03/20/24 23:35 PM Medications Administered Acetaminophen 1g IV Albuterol 3mL Neb Methylprednisolone 125mg IV Oseltamivir phosphate 75mg po ECG Additional Comments: Sinus tachycardia, nonspecific T wave abnormality, prolonged QT 110 bpm, ND 160, QRS 86, QT/QTc 478/646, PRT axis 75/79/66 Code Status & VTE Plan Code Status Full VTE Prophylaxis Plan VTE Prophylaxis will be ordered: Yes Supervising Physician Co-Signing Physician Notes patient seen and examined, chart reviewed, case discussed with DO Zimmer and I agree with the assessment and plan as documented above. In brief, patient is a 68-year-old female with history of COPD presenting with influenza A, shortness of breath, hypoxia. Presently saturating well on 4 L nasal cannula. Patient does not use supplemental oxygen at home On exam she is resting comfortably, no acute distress, able to answer questions and speak in full sentences Skinno rash HEENTmoist mucous membranes, neck supple Heart+ S1/S2, Regular Lungs with coarse breath sounds anteriorly with diffuse rhonchi and end expiratory wheezing Abdomen + bowel sounds, soft, nontender/nondistended Extremities warm and well-perfused with no clubbing/cyanosis or edema labs and images reviewed Chest x-ray with mildly prominent interstitial markings throughout both lungs suggesting mild emphysema. No new infiltrates Assessment/[id number] female with acute hypoxic respiratory failure secondary to COPD exacerbation in the setting of influenza A infection Treatment with Tamiflu Symptomatic management Will provide IV steroids for now for presumed COPD exacerbation Doxycycline Nebs Remainder of plan as above PG Care Time/CCT Total # of Minutes Spent Total Time Spent with Patient: Total time spent is greater than 50% in coordination of care (as documented) at patient's floor/unit and/or counseling patient: Coding Level of Care Code 17416 INT INP/OBS CARE 3/75MIN Diagnoses Acute hypoxic respiratory failure J96.01 Influenza A J10.1
[2024-03-21] MEDS: OSELTAMIVIR PHOSPHATE 75 MG CAP PO STA (02:06)
[2024-03-21] MEDS ORDERED: MELATONIN 3 MG TAB PO PRN (02:11)
[2024-03-21] MEDS ORDERED: ALUMINUM/MAGNESIUM SUSP 30 ML UDC PO PRN (02:11)
[2024-03-21] MEDS ORDERED: ACETAMINOPHEN 325 MG TAB PO PRN (02:11)
[2024-03-21] MEDS ORDERED: POLYETHYLENE (MIRALAX) 17 GM PACK PO PRN (02:11)
[2024-03-21] MEDS: ALBUT/IPRATROP 3MG/0.5MG NEB 3 ML VIAL NEB SCH (03:45)
[2024-03-21] MEDS: FORMOTEROL 20 MCG/2 ML VIAL NEB SCH (08:06)
[2024-03-21] MEDS: BUDESONIDE 0.25 MG/2 ML VIAL (PULMICORT) NEB SCH (08:07)
--- OUTSIDE RECORDS SUMMARY | 2024-03-21 08:08 | External Medical Summary ---
Author Name Unknown Address Unknown Organization [id number]:[facility] [place] [address] [place] [address] Laboratory Report Ordering Provider Test Date Status SERVANDO BAUTISTA 11/08/2023 10:21:55 Final Observation Date Value Abnormality Reference (Units ) Status BUN 11/08/2023 10:21:55 22 Above high normal 6-20 (mg/dL) Final Creatinine 11/08/2023 10:21:55 0.7 0.5-1.0 (mg/dL) Final Glomerular filtration rate/1.73 sq M.predicted [Volume Rate/Area] in Serum, Plasma or Blood by Creatinine-based formula (CKD-EPI) 11/08/2023 10:21:55 87 >=60 (mL/min) Final eGFR is calculated based on the CKD-EPI 2020 equation. Sodium 11/08/2023 10:21:55 137 135-146 (m mol/L) Final Potassium 11/08/2023 10:21:55 4.2 3.5-5.1 (m mol/L) Final Cl 11/08/2023 10:21:55 101 98-107 (mm ol/L) Final CO2 11/08/2023 10:21:55 26 22-32 (mmo l/L) Final Anion gap 11/08/2023 10:21:55 10 7-15 (mmol /L) Final Glucose 11/08/2023 10:21:55 208 Above high normal 70 -120 (mg/dL) Final Calcium 11/08/2023 10:21:55 9.3 8.4-10.2 ( mg/dL) Final Performing Location [facility] [place] [address] [place] [address]
--- OUTSIDE RECORDS SUMMARY | 2024-03-21 08:08 | External Medical Summary | Summary of Care ---
Author Name Unknown Organization [facility] Address [address] [facility] [address] Phone [phone] Care Team Providers Care E Learning Designer Name Role Phone Isabela Sullivan DO Primary Care Provid er Reason for Visit * Reason Comments Outpatient Testing Encounter Details Date Type Department Care Team (Late st Contact Info) Description 11/08/2023 10:20 AM EDT Laboratory Laboratory [address] [place] [phone] [place] [address] DM hyperosmolar coma, type 1 (HCC); Dyslipidemia, goal LDL below 160 Allergies Active Allergy Reactions Criticality Noted Date Comments Lisinopril Cough 12/09/2014 Penicillins 06/06/1997 hives documented as of this encounter (statuses as of 11/08/2023) Medications Medication Sig Dispensed Refills Start Date End Date Status ASPIRIN 81 MG PO TABS 1 TABLET DAILY 0 05/04/2006 Active INSULIN PUMPIndications:D M type 2, not at goal (HCC) insertion set, [place] MMT 381 change every 3 days 10 Each 5 08/19/2010 Active MINIMED PUMP RESERVOIR 3ML MISCIndications:D M type 2, not at goal (HCC) [place] MMT 32A change every 3 days 10 ng 5 07/02/2013 Active PRAVACHOL 40 MG PO TABSIndications:D yslipidemia, goal to be determined,HTN, goal below 140/90 one tab by mouth daily 30 Tab 5 08/14/2013 Active VITAMIN D 2000 UNITS PO TABS 1 tab daily Active Blood Glucose Monitoring Suppl (ONETOUCH ULTRALINK) W/DEVICE KIT 08/28/2014 Active VENTOLIN HFA 108 (90 BASE) MCG/ACT inhaler 2 puffs every 6 hours as needed 11/04/2014 Active Glucose Blood (ONETOUCH ULTRA BLUE) STRPIndications:D M type 1, goal A1c at or below 9.0 Test blood sugar up to four times daily 100 Strip 5 06/30/2015 Active ONETOUCH DELICA LANCETS FINE MISCIndications:D M type 1, goal A1c at or below 9.0 Test blood sugar up to four times daily 100 Each 06/30/2015 Active Acetone, Urine, Test (KETOSTIX) STRP As directed. 100 Each 10/06/2015 Active Insulin Lispro, Human, (HUMALOG KWIKPEN) 100 UNIT/ML SOPN Use as directed in case of pump malfunction 2 Pre-filled Pen Syringe Dosing Unit 2 10/06/2015 Active insulin glargine (LANTUS SOLOSTAR) 100 UNIT/ML SOPN In case of pump malfunction 1 Pre-filled Pen Syringe Dosing Unit 3 10/06/2015 Active B-D Ultrafine III, 5MM, Pen MISC Use as directed. 20 Pre-filled Pen Syringe Dosing Unit 3 10/06/2015 Active insulin lispro, human, (HUMALOG) 100 UNIT/ML injection use as directed in the insulin pump- up to 60 units daily 5 Vial 3 08/31/2016 Active documented as of this encounter (statuses as of 11/08/2023) Active Problems Problem Noted Date Diagnosed Date Screening for thyroid disorder 04/05/2016 Type 1 diabetes mellitus wit h hemoglobin A1c goal of less than or equal to 9.0% 07/16/2014 Overview: ICD-10 update of inactive term No diabetic retinopathy in both eyes 04/01/2014 Overview: last eye exam 10/19/13 DYSLIPIDEMIA, GOAL LDL BELOW 100 02/18/2009 Overview: Per Lipid Taxonomy. CA IN SITU CERVIX UTERI documented as of this encounter (statuses as of 11/08/2023) Resolved Problems Problem Noted Date Diagnosed Date Resolved Date Type 2 diabetes mellitus wit h hemoglobin A1c goal of less than or equal to 9.0% 05/16/201307/15 Overview: ICD-10 update of inactive term Type 2 diabetes mellitus wit h hemoglobin A1c goal of less than 7.0% 12/26/2008 05/16/2013 Overview: Modified per Diabetes protocol #14. ICD-10 update of inactive term Dyslipidemia, goal to be determined 03/28/2006 02/18/2009 Overview: Per Lipid Taxonomy. DM type 2, not at goal 12/26 Overview: Modified per Diabetes protocol #14. documented as of this encounter (statuses as of 11/08/2023) Social History Tobacco Use Types Packs/Day Years Used Date Smoking Tobacco: Former Cigarettes 1 20 0 06/24/1988 - 06/24/2008 Smokeless Tobacco: Never Alcohol Use Standard Drinks/Week Comments No 0 (1 standard drink = 0.6 oz pur e alcohol) rare Sex and Gender Information Value Date Recorded Sex Assigned at Not on file Gender Identity Not on file Sexual Orientation Not on file Job Start Date Occupation Industry Not on file Not on file Not on file documented as of this encounter Plan of Treatment Pending Results Name Type Priority Associated Diagnoses Date /Time HEMOGLOBIN A1C Lab Routine DM hyperosmolar coma, type 1 (HCC) Dyslipidemia, goal LDL below 160 11/08/2023 10:21 AM EDT BASIC METABOLIC PANEL Lab Routine DM hyperosmolar coma, type 1 (HCC) Dyslipidemia, goal LDL below 160 11/08/2023 10:21 AM EDT ALBUMIN / CREATININE RATIO, URINE Lab Routine DM hyperosmolar coma, type 1 (HCC) Dyslipidemia, goal LDL below 160 11/08/2023 10:21 AM EDT Health Maintenance Due Date Last Done Comments DXA Scan 1953 Depression Screening 1965 DTap/Tdap Vaccines (1 - Tdap) 1972 Cologuard 1998 Colonoscopy 1998 Colorectal Cancer Screening 1998 Fecal Occult Blood Test 1998 Sigmoidoscopy 1998 Zoster Vaccines (1 of 2) 05/18/2003 Pneumococcal Vaccine: 65+ Years (2 of 2 - PPSV23 or PCV20) 07/03/2014 05/08/2014 Diabetic Eye Exam 03/29/2015 03/29/2014, (Done elsewhere), 11/15/2010, Additional history exists Diabetic Foot Exam 06/08/2016 06/09/2015, 0 03/27/2014, 11/22/2012, Additional history exists COVID-19 Vaccine ( season) 2022 06/02/2020, 05/12/2020 Albumin/Creatinine Ratio 09/30/2023 023, 04/29/2021, 03/31/2020, Additional history exists Mammogram 09/30/2023 09/29/2022, 09/11, 08/18/2020, Additional history exists Influenza Vaccine (FLU shot) (#1) 2023 HbA1c 01/25/2024 07/25/2023, 04/14, 04/27/2023, Additional history exists GFR 07/24/2024 07/25/2023, 04/14, 04/27/2023, Additional history exists Lipid Panel 04/27/2028 04/27/2023, 03/11/2022, 10/23/2021, Additional history exists HPV (Gardasil) Vaccine Aged Out No lo nger eligible based on patient's age to complete this topic Hepatitis B Vaccine Aged Out No longe r eligible based on patient's age to complete this topic MENINGOCOCCAL (MENACTRA/MENVEO) Aged Out No longer eligible based on patient's age to complete this topic documented as of this encounter Medical Devices Not on filedocumented as of this encounter Visit Diagnoses Diagnosis DM hyperosmolar coma, type 1 (HCC) Type I (juvenile type) diabetes mellitus with hyperosmolarity, not stated as uncontrolled Dyslipidemia, goal LDL below 160 Other and unspecified hyperlipidemia documented in this encounter Care Teams E Learning Designer Relationship Specialty Start Date End Date Isabela Sullivan DO [place] [address] [place] [phone] PCP - General Family Medicine 05/04/12 documented as of this encounter
--- OUTSIDE RECORDS SUMMARY | 2024-03-21 08:08 | External Medical Summary | Summary of Care ---
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 ([facility]); Insulin long-term use ([facility]); Insulin pump status; Dyslipidemia, goal LDL below 160 Allergies Active Allergy Reactions Criticality Noted Date Comments Lisinopril Cough 12/09/2014 Penicillins 06/06/1997 hives documented as of this encounter (statuses as of 02/13/2024) Medications ASPIRIN 81 MG PO TABS 1 TABLET DAILY 0 7 Active INSULIN PUMPIndications :DM type 2, not at goal ([facility]) insertion set, [place] MMT 381 change every 3 days 10 Each 5 1 Active MINIMED PUMP RESERVOIR 3ML MISCIndications :DM type 2, not at goal ([facility]) [place] MMT 32A change every 3 days 10 ng 5 4 Active PRAVACHOL 40 MG PO TABSIndications :Dyslipidemia, goal to be determined,HTN, goal below 140/90 one tab by mouth daily 30 Tab 5 4 Active VITAMIN D 2000 UNITS PO TABS 1 tab daily Acti ve Blood Glucose Monitoring Suppl (Graft ConceptsTOUCH ULTRALINK) W/DEVICE KIT 5 Active VENTOLIN HFA 108 (90 BASE) MCG/ACT inhaler 2 puffs every 6 hours as needed 5 Active Glucose Blood (ONETOUCH ULTRA BLUE) STRPIndications :DM type 1, goal A1c at or below 9.0 Test blood sugar up to four times daily 100 Strip 5 6 Active ONETOUCH DELICA LANCETS FINE MISCIndications :DM type 1, goal A1c at or below 9.0 Test blood sugar up to four times daily 100 Each 5 6 Active Acetone, Urine, Test (KETOSTIX) STRP As directed. 100 Each 3 6 Active Insulin Lispro, Human, (HUMALOG KWIKPEN) 100 UNIT/ML SOPN Use as directed in case of pump malfunction 2 Pre-filled Pen Syringe Dosing Unit 2 6 Active insulin glargine (LANTUS SOLOSTAR) 100 UNIT/ML SOPN In case of pump malfunction 1 Pre-filled Pen Syringe Dosing Unit 3 6 Active B-D Ultrafine III, 5MM, Pen MISC Use as directed. 20 Pre-filled Pen Syringe Dosing Unit 3 6 Active insulin lispro, human, (HUMALOG) 100 UNIT/ML injection use as directed in the insulin pump- up to 60 units daily 5 Vial 3 7 Active documented as of this encounter (statuses as of 02/13/2024) Active Problems Problem Noted Date Diagnosed Date Screening for thyroid disorder 04/05/2016 Type 1 diabetes mellitus wit h hemoglobin A1c goal of less than or equal to 9.0% 07/16/2014 Overview (07/22/2015): ICD-10 update of inactive term No diabetic retinopathy in both eyes 04/01/2014 Overview (04/01/2014): last eye exam 10/19/13 DYSLIPIDEMIA, GOAL LDL BELOW 100 02/18/2009 Overview (02/18/2009): Per Lipid Taxonomy. CA IN SITU CERVIX UTERI documented as of this encounter (statuses as of 02/13/2024) Resolved Problems Problem Noted Date Diagnosed Date Resolved Date Type 2 diabetes mellitus wit h hemoglobin A1c goal of less than or equal to 9.0% 05/16/201307/15 Overview (07/15/2015): ICD-10 update of inactive term Type 2 diabetes mellitus wit h hemoglobin A1c goal of less than 7.0% 12/26/2008 05/16/2013 Overview (07/08/2015): Modified per Diabetes protocol #14. ICD-10 update of inactive term Dyslipidemia, goal to be determined 03/28/2006 02/18/2009 Overview (02/18/2009): Per Lipid Taxonomy. DM type 2, not at goal 12/26 Overview (12/26/2008): Modified per Diabetes protocol #14. 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 Not on file Not on file Not on f ile documented as of this encounter Plan of Treatment Pending Results Name Type Priority Associated Diagnoses Date /Time BASIC METABOLIC PANEL Lab Routine DM type 1, not at goal (HCC) 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) Insulin long-term use (HCC) Insulin pump status Dyslipidemia, goal LDL below 160 02/13/2024 10:57 AM EST HEMOGLOBIN A1C Lab Routine DM type 1, not at goal (HCC) 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) Insulin long-term use (HCC) Insulin pump status Dyslipidemia, goal LDL below 160 02/13/2024 10:57 AM EST TSH Lab Routine DM type 1, not at goal (HCC) 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) Insulin long-term use (HCC) Insulin pump status Dyslipidemia, goal LDL below 160 02/13/2024 10:57 AM EST Health Maintenance Due Date Last Done Comments [...] 06/09/2015, 0 03/27/2014, 11/22/2012, Additional history exists Mammogram 09/30/2023 09/29/2022, 09/11, 08/18/2020, Additional history exists COVID-19 Vaccine ( season) 2023 06/02/2020, 05/12/2020 Influenza Vaccine (FLU shot) (#1) 2023 HbA1c 05/10/2024 11/08/2023, 07/12, 04/27/2023, Additional history exists Albumin/Creatinine Ratio 11/07/20242 024, 09/29/2022, 04/29/2021, Additional history exists GFR 11/07/2024 11/08/2023, 07/12, 04/27/2023, Additional history exists Lipid Panel 04/27/2028 04/27/2023, 03/0 11/2022, 10/23/2021, Additional history exists HPV (Gardasil) Vaccine [...] of this encounter Visit Diagnoses Diagnosis DM type 1, not at goal (HCC) Type I (juvenile type) diabetes mellitus without mention of complication, not stated as uncontrolled 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
--- OUTSIDE RECORDS SUMMARY | 2024-03-21 08:08 | External Medical Summary ---
Author Name Unknown Address Unknown Organization [id number]:LABORATORY [facility] [place] - [address] [facility] [address] Laboratory Report Ordering Provider Test Date Status KATY MINAYA 02/13/2024 10:57:32 Final Observation Date Value Abnormality Reference (Units ) Status HbA1C 02/13/2024 10:57:32 8.2 Above high normal 4. 0-5.6 (%) Final The use of HbA1c to monitor glycemic status is based on normal hemoglobin and HbA composition. This test should not be used in patients with abnormal hemoglobin that affects the half life of the red blood cell or the in vivo glycation rates. Glucose, estimated average 02/13/2024 10:57:32 189 Above high normal <126 (mg/dL) Victor Manuel magallon Performing Location LABORATORY [facility] [place] - [address] [facility] [address]
--- OUTSIDE RECORDS SUMMARY | 2024-03-21 08:08 | External Medical Summary | Summary of Care ---
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); Insulin long-term use ([facility]); Insulin pump status; Dyslipidemia, goal LDL below 160 Allergies Active Allergy Reactions Criticality Noted Date Comments Lisinopril Cough 12/09/2014 Penicillins 06/06/1997 hives documented as of this encounter (statuses as of 02/13/2024) Medications ASPIRIN 81 MG PO TABS 1 TABLET DAILY 0 7 Active INSULIN PUMPIndications :DM type 2, not at goal ([facility]) insertion set, [place] MMT 381 change every 3 days 10 Each 5 1 Active MINIMED PUMP RESERVOIR 3ML MISCIndications :DM type 2, not at goal ([facility]) [place] MMT 32A change every 3 days 10 ng 5 4 Active PRAVACHOL 40 MG PO TABSIndications :Dyslipidemia, goal to be determined,HTN, goal below 140/90 one tab by mouth daily 30 Tab 5 4 Active VITAMIN D 2000 UNITS PO TABS 1 tab daily Acti ve Blood Glucose Monitoring Suppl (YubTOUCH ULTRALINK) W/DEVICE KIT 5 Active VENTOLIN HFA [...] LDL below 160 02/13/2024 10:57 AM EST Scheduled Orders Name Type Priority Associated Diagnoses Orde r Schedule BASIC METABOLIC PANEL Lab Routine DM type 1, not at goal (HCC) 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) Insulin long-term use (HCC) Insulin pump status Dyslipidemia, goal LDL below 160 Expected: 02/13/2024, Expires: 02/12/2025 HEMOGLOBIN A1C Lab Routine DM type 1, not at goal (HCC) 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) Insulin long-term use (HCC) Insulin pump status Dyslipidemia, goal LDL below 160 Expected: 02/13/2024, Expires: 02/12/2025 TSH Lab Routine DM type 1, not at goal (HCC) 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] hyperlipidemia documented in this encounter Care Teams Ultra Sound Technician Relationship Specialty Start Date End Date Isabela Sullivan DO [address] [place] [address] [place] [phone] PCP - General Family Medicine 05/04/12 documented as of this encounter
--- OUTSIDE RECORDS SUMMARY | 2024-03-21 08:08 | External Medical Summary | Summary of Care ---
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 ([facility]); Insulin long-term use ([facility]); Insulin pump status; Dyslipidemia, goal LDL below 160 Allergies Active Allergy Reactions Criticality Noted Date Comments Lisinopril Cough 12/09/2014 Penicillins 06/06/1997 hives documented as of this encounter (statuses as of 02/13/2024) Medications ASPIRIN 81 MG PO TABS 1 TABLET DAILY 0 7 Active INSULIN PUMPIndications :DM type 2, not at goal ([facility]) insertion set, [place] MMT 381 change every 3 days 10 Each 5 1 Active MINIMED PUMP RESERVOIR 3ML MISCIndications :DM type 2, not at goal ([facility]) [place] MMT 32A change every 3 days 10 ng 5 4 Active PRAVACHOL 40 MG PO TABSIndications :Dyslipidemia, goal to be determined,HTN, goal below 140/90 one tab by mouth daily 30 Tab 5 4 Active VITAMIN D 2000 UNITS PO TABS 1 tab daily Acti ve Blood Glucose Monitoring Suppl (CultureAlleyTOUCH ULTRALINK) W/DEVICE KIT 5 Active VENTOLIN HFA [...] hyperlipidemia documented in this encounter Care Teams It Communications Specialist Relationship Specialty Start Date End Date Isabela Sullivan DO [address] [place] [id number] PCP - General Family Medicine 05/04/12 documented as of this encounter
--- OUTSIDE RECORDS SUMMARY | 2024-03-21 08:08 | External Medical Summary ---
Author Name Unknown Address Unknown Organization [id number]:LABORATORY [facility] [place] - [facility] [address] [place] [address] Laboratory Report Ordering Provider Test Date Status KATY MINAYA 02/13/2024 10:57:32 Final Observation Date Value Abnormality Reference (Units ) Status BUN 02/13/2024 10:57:32 19 6-20 (mg/dL) Final Creatinine 02/13/2024 10:57:32 0.7 0.5-1.0 (mg/dL) Final Glomerular filtration rate/1.73 sq M.predicted [Volume Rate/Area] in Serum, Plasma or Blood by Creatinine-based formula (CKD-EPI) 02/13/2024 10:57:32 >90 >=60 (mL/min) Final eGFR is calculated based on the CKD-EPI 2020 equation. Sodium 02/13/2024 10:57:32 139 135-146 (m mol/L) Final Potassium 02/13/2024 10:57:32 4.5 3.5-5.1 (m mol/L) Final Cl 02/13/2024 10:57:32 102 98-107 (mm ol/L) Final CO2 02/13/2024 10:57:32 27 22-32 (mmo l/L) Final Anion gap 02/13/2024 10:57:32 10 7-15 (mmol /L) Final Glucose 02/13/2024 10:57:32 273 Above high normal 70 -120 (mg/dL) Final Calcium 02/13/2024 10:57:32 9.4 8.4-10.2 ( mg/dL) Final Performing Location LABORATORY [facility] [place] - [address] [place] [address]
--- OUTSIDE RECORDS SUMMARY | 2024-03-21 08:08 | External Medical Summary | Summary of Care ---
Author Name Unknown Organization [facility] Address [address] [facility] [address] Phone [phone] Care Team Providers Care Vegetable Farmer Name Role Phone Isabela Sullivan DO Primary Care Provid er Reason for Visit * Reason Comments Outpatient Testing Encounter Details Date Type Department Care Team (Late st Contact Info) Description 11/08/2023 10:20 AM EDT Laboratory Laboratory [address] [place] [phone] [place] [address] DM hyperosmolar coma, type 1 (HCC); Dyslipidemia, [...] M type 2, not at goal (HCC) [place] MMT 32A change every 3 days 10 [...] hyperlipidemia documented in this encounter Care Teams Vegetable Farmer Relationship Specialty Start Date End Date Isabela Sullivan DO [place] [address] [phone] PCP - General Family Medicine 05/04/12 documented as of this encounter
--- OUTSIDE RECORDS SUMMARY | 2024-03-21 08:08 | External Medical Summary ---
Author Name Unknown Address Unknown Organization [id number]:[facility] [place] [address] [place] [address] Laboratory Report Ordering Provider Test Date Status KATY MINAYA 02/13/2024 10:57:32 Final Observation Date Value Abnormality Reference (Units ) Status TSH 02/13/2024 10:57:32 2.64 0.27-4.20 (uIU/mL) Final Performing Location LABORATORY [facility] - [address] [place] [address]
--- OUTSIDE RECORDS SUMMARY | 2024-03-21 08:09 | External Medical Summary ---
Author Name Unknown Address Unknown Organization [id number]:LABORATORY [facility] [place] - [address] [place] [address] Laboratory Report Ordering Provider Test Date Status SERVANDO BAUTISTA 11/08/2023 10:21:55 Final Normal: <30 mg/g creatinine< br/>High: 30-300 mg/g creatinine
Very High: >300 mg/g creatinine
Nephrotic: >2200 mg/g creatinine Observation Date Value Abnormality Reference (Units ) Status Albumin, Urine 11/08/2023 10:21:55 1.00 (mg/dL) Final Creatinine, Urine 11/08/2023 10:21:55 204 (mg/dL) Final Albumin/Creatinine [Mass Ratio] in Urine 11/08/2023 10:21:55 5 <30 (mg/g Creat) Final Performing Location LABORATORY [facility] [place] - [address] [place] [address]
--- OUTSIDE RECORDS SUMMARY | 2024-03-21 08:09 | External Medical Summary ---
Author Name Unknown Address Unknown Organization [id number]:LABORATORY [facility] [place] - [address] [place] [address] Laboratory Report Ordering Provider Test Date Status SERVANDO BAUTISTA 11/08/2023 10:21:55 Final Observation Date Value Abnormality Reference (Units ) Status HbA1C 11/08/2023 10:21:55 8.9 Above high normal 4. 0-5.6 (%) Final The use of HbA1c to monitor glycemic status is based on normal hemoglobin and HbA composition. This test should not be used in patients with abnormal hemoglobin that affects the half life of the red blood cell or the in vivo glycation rates. Glucose, estimated average 11/08/2023 10:21:55 209 Above high normal <126 (mg/dL) Victor Manuel magallon Performing Location LAB[facility]ATORY [facility] [place] - [address] [facility] [address]
[2024-03-21] MEDS ORDERED: GLUCOSE 10 TAB/TUBE PO PRN ×2 (08:37→08:58)
[2024-03-21] MEDS ORDERED: GLUCAGON FOR INJ 1 MG VIAL SQ PRN ×2 (08:37→08:58)
[2024-03-21] MEDS ORDERED: CARBOHYDRATES FOR HYPOGLYCEMIA PO PRN ×2 (08:37→08:58)
[2024-03-21] MEDS ORDERED: GLUCOSE 40% GEL 15 GM TUBE PO PRN ×2 (08:37→08:58)
[2024-03-21] MEDS ORDERED: DEXTROSE 50% 50 ML SYRINGE IV PRN ×2 (08:37→08:58)
[2024-03-21] MEDS ORDERED: INSULIN ASPART 100 UNITS/ML VIAL SC PRN (08:58)
[2024-03-21] MEDS: methylPREDNISolone 40 MG in SYRINGE 0 ML IV SCH (08:58)
[2024-03-21] MEDS: ENOXAPARIN INJ 40 MG/0.4 ML SYR SQ SCH (08:59)
[2024-03-21] MEDS: OSELTAMIVIR PHOSPHATE 75 MG CAP PO SCH (08:59)
[2024-03-21] MEDS: DOXYCYCLINE HYCLATE 100 MG CAP PO SCH (08:59)
[2024-03-21] MEDS ORDERED: methylPREDNISolone 125 MG/2 ML VIAL IV SCH (09:00)
[2024-03-21] MEDS ORDERED: INSULIN, Rapid-Acting PUMP SC SCH (09:00)
[2024-03-21 09:45] LABS: Hematocrit (blood only) 41.1 % (37.0-47.0); Hemoglobin 13.5 g/dl (12.0-16.0); Mean Corpuscular Hemoglobin 28.9 pg (25.0-34.0); Mean Corpuscular Hgb Conc 32.8 g/dL (32.0-36.0); Mean Platelet Volume 9.8 fL (9.4-12.4); Platelet Count 177 K/uL (130-400); RDW Coefficient of Variation 12.8 % (11.5-14.5); RDW Standard Deviation 41.3 fL (36.4-46.3); Red Blood Count 4.67 M/uL (4.20-5.40); White Blood Count 6.88 K/ul (4.8-10.8)
[2024-03-21 10:07] LABS: Albumin Globulin Ratio 1.5 (0.9-2); Albumin Level 4.4 gm/dl (3.4-5.0); BUN Creatinine Ratio 33.3 (10-20); Bilirubin,Total 0.5 mg/dl (0.2-1.0); Calcium 9.2 mg/dl (8.6-10.3); Creatinine Clr Calc Pharmacy 58.1 ml/min; Potassium 4.1 mmol/L (3.5-5.1); Total Protein 7.4 gm/dl (6.0-8.3)
[2024-03-21] MEDS: Continuous Glucose Monitor SCH (13:00)
--- NOTE | 2024-03-21 14:27 | Hospitalist Progress Note ---
Date of Service March 21, 2024 NO BILL Assessment & Plan (1) Acute hypoxic respiratory failure: (2) Influenza A: Plan 68-year-old female PMHx COPD, ovarian cancer, GERD, HTN, HLD, and DM presenting to ED for shortness of breath. Flulike symptoms began approximately 1 day [employer], consisting of cough with congestion as well as fever and chills. CXR w/o evidence of new infiltrates. CBC + procal grossly WNL. Presence of wheezing on exam, requiring O2 and found to have Flu A. Admission for hypoxic, COPD exacerbation, and management of flu A. #Acute hypoxic respiratory failure/Influenza A/COPD exacerbation H/o COPD w/ previous exacerbations requiring admission. CXR without evidence of new infiltrates; CBC grossly WNL and procalcitonin WNL. Requiring O2 via NC, none at baseline. - FV+ IC; No O2 at baseline; O2 via NC prn; wean as patient tolerates - Methylprednisolone 40mg IV BID; Tamiflu BID x 5 days total - Duonebs q4hr; budesonide + formoterol nebs BID - Doxycycline for COPD exacerbation management- Prolonged QT on initial EKG - Droplet precautions #Elevated troponin No current chest pain, palpitations, or symptoms concerning of such. - Troponin 14.6 on admission, repeat 12.4 - EKG w/o ischemic changes - Likely 2/2 demand #Diabetes mellitus H/o DM, insulin dependent; Dexcom in place. - A1c 2021 @ 8.0%; no repeat at time of admission - Defer SSI at time of admission but will monitor and adjust as appropriate - BSG ACHS Chronic conditions: #HLD- Atorvastatin #Bladder spasms- Myrbetriq #GERD- Omeprazole Alkaline phosphatase elevated at time of admission; appears to be chronic finding for patient per prior labs; patient not having any additional symptoms suggestive of acute changes at time of admission Dispo: Admit med/tele VTE prophylaxis: Lovenox Admission and Anticipated Discharge Date Admission Date: March 21, 2024 Subjective Patient seen and examined this afternoon. Patient reports to be feeling better. She is still complaining of a cough and shortness of breath on exertion. She feels this has improved since reporting to the ER overnight Physical Exam Constitutional: WD/WN, vitals as above Eyes: PERRL, conjunctivae normal, anicteric sclerae Respiratory: normal respiratory effort, lungs clear to auscultation Cardiovascular: RRR, no murmur, no edema Psychiatric: A+Ox3, euthymic affect Results & Data Results & Data Vital Signs (Past 12 Hours) Vital Signs Temp Pulse Pulse Resp BP Pulse Ox O2 Del Method 03/21/24 10:56 90 20 97 Nasal Cannula 03/21/24 10:53 92 H 19 99/82 L 93 Nasal Cannula 03/21/24 09:00 Nasal Cannula 03/21/24 08:09 93 H 20 94 Nasal Cannula 03/21/24 07:16 91 H 03/21/24 03:59 Nasal Cannula 03/21/24 03:59 36.9 C 107 H 18 112/55 L 93 Nasal Cannula 03/21/24 02:56 37.5 C 91 H 17 118/52 L 93 Nasal Cannula 03/21/24 02:36 92 H O2 Flow Rate 03/21/24 10:56 3 03/21/24 10:53 3 03/21/24 09:00 3 03/21/24 08:09 2 03/21/24 07:16 03/21/24 03:59 2 03/21/24 03:59 2 03/21/24 02:56 2 03/21/24 02:36 PG Care Time/CCT Total # of Minutes Spent Total Time Spent with Patient: Total time spent is greater than 50% in coordination of care (as documented) at patient's floor/unit and/or counseling patient: Coding Level of Care Code None Diagnoses Acute hypoxic respiratory failure J96.01 Influenza A J10.1
[2024-03-21] MEDS: LEVALBUTEROL 0.31MG/3 ML VIAL NEB SCH (17:19)
[2024-03-21] MEDS ORDERED: LEVALBUTEROL 0.31MG/3 ML VIAL NEB SCH (19:00)
[2024-03-21] MEDS: LEVALBUTEROL HCL 0.63 MG/3 ML NEB NEB SCH (20:29)
[2024-03-21] MEDS: PANTOprazole 40 MG TAB PO SCH (21:24)
[2024-03-21] MEDS: OMEPRAZOLE 40 MG PO SCH (21:56)
[2024-03-21] MEDS: OSELTAMIVIR PHOSPHATE SUSP 30 MG/5 ML UDP PO SCH (22:39)
[2024-03-22 06:08] LABS: Hematocrit (blood only) 36.5 % (37.0-47.0); Hemoglobin 12.1 g/dl (12.0-16.0); Mean Corpuscular Hemoglobin 29.1 pg (25.0-34.0); Mean Corpuscular Hgb Conc 33.2 g/dL (32.0-36.0); Mean Corpuscular Volume 87.7 fL (80.0-100.0); Platelet Count 176 K/uL (130-400); RDW Coefficient of Variation 12.5 % (11.5-14.5); RDW Standard Deviation 40.2 fL (36.4-46.3); Red Blood Count 4.16 M/uL (4.20-5.40)
[2024-03-22 06:19] LABS: BUN Creatinine Ratio 39.6 (10-20); Calcium 8.9 mg/dl (8.6-10.3); Creatinine Clr Calc Pharmacy 54.5 ml/min; Potassium 4.5 mmol/L (3.5-5.1)
--- NOTE | 2024-03-22 06:55 | Electrocardiogram Report ---
Test Reason : Blood Pressure : */* mmHG Vent. Rate : 110 BPM Atrial Rate : 111 BPM P-R Int : 160 ms QRS Dur : 86 ms QT Int : 478 ms P-R-T Axes : 75 79 66 degrees QTcB Int : 646 ms Sinus tachycardia Nonspecific T wave abnormality Prolonged QT Abnormal ECG When compared with ECG of 21-May-2022 13:44, Vent. rate has increased by 50 bpm T wave inversion now evident in Anterior leads Confirmed by Vladimir Saravia ([id number]) on 03/22/2024 6:54:56 AM Referred By: REFERRED SELF Confirmed By: Vladimir Saravia
[2024-03-22] MEDS: SODIUM CHLORIDE 0.9% 500 ML IV SCH (08:09)
--- NOTE | 2024-03-22 11:20 | Discharge Summary ---
Discharge Summary Date of Service March 22, 2024 Principal Dx & Hospital Course #1 = Principal Diagnosis (1) Acute hypoxic respiratory failure: (2) Influenza A: Plan 68-year-old female PMHx COPD, ovarian cancer, GERD, HTN, HLD, and DM presenting to ED for shortness of breath. Flulike symptoms began approximately 1 day [employer], consisting of cough with congestion as well as fever and chills. CXR w/o evidence of new infiltrates. CBC + procal grossly WNL. Presence of wheezing on exam, requiring O2 and found to have Flu A. Admission for hypoxic, COPD exacerbation, and management of flu A. #Acute hypoxic respiratory failure/Influenza A/COPD exacerbation H/o COPD w/ previous exacerbations requiring admission. CXR without evidence of new infiltrates; CBC grossly WNL and procalcitonin WNL. Requiring O2 via NC, none at baseline. -Patient weened to room air on 03/22. 2 step completed and she did not require O2 on discharge -Transitioned to prednisone taper -encouraged to finish 5 day course of Tamiflu and Doxycycline on d/c -continue outpatient inhalers and nebulizer treatments prn #Elevated troponin No current chest pain, palpitations, or symptoms concerning of such. - Troponin 14.6 on admission, repeat 12.4 - EKG w/o ischemic changes - Likely 2/2 demand #Diabetes mellitus H/o DM, insulin dependent; Dexcom in place. Chronic conditions: #HLD- Atorvastatin #Bladder spasms- Myrbetriq #GERD- Omeprazole Alkaline phosphatase elevated at time of admission; appears to be chronic finding for patient per prior labs; patient not having any additional symptoms suggestive of acute changes at time of admission Patient discharged to home without services on 03/22/2024. Admission HPI Per Admitting Provider 68-year-old female PMHx COPD, ovarian cancer, GERD, HTN, HLD, and DM presenting to ED for shortness of breath. Flulike symptoms began approximately 1 day [employer], consisting of cough with congestion as well as fever and chills. States that she has a productive cough, but is unsure what the quality of sputum looks like. Has felt feverish, but declines actually taking her temperature. Did use nebulizer treatment morning prior to arrival but did not find much relief. Sick contacts include her grandchildren. CBC revealed no acute findings and CMP was grossly WNL with exception of alkaline phosphatase at 127. Procalcitonin was 0.09, BNP was 40, and CXR revealed mildly prominent interstitial markings throughout both lungs suggestive of mild emphysema as well as a possible 5 cm hiatal hernia. Otherwise VBG's are stable, patient has anion gap of 12, and troponin was elevated at 14.6 and pending repeat but with EKG revealing no ischemic changes patient denying any chest pain. Patient was provided with Tamiflu, methylprednisolone, acetaminophen, and albuterol in the ED. Please see Dr. Anaya's attestation for adjustments/additions to treatment plan. Discharge Exam Constitutional WD/WN, vitals as above Eyes PERRL, conjunctivae normal, anicteric sclerae Respiratory normal respiratory effort, lungs clear to auscultation Cardiovascular RRR, no murmur, no edema Psychiatric A+Ox3, euthymic affect Discharge Plan Discharge Items Patient Disposition: Home - Self-Care Reason For Visit: HYPOXIC RESP FAILURE, FLU, COPD Discharge Diagnosis: COPD exacerbation, influenza A Condition on Discharge: Fair Activity: Resume your previous activity Non-emergency contact: Primary Care Provider Call non-emergency contact if: you have any medication questions and your symptoms worsen Follow-up/Referrals: Isabela Ayers D.O. [Primary Care Provider] - (dr's office will call you with f/u appt) Diet: Regular and Carb Consistent or DM2 Addtl Attending Provider Instructions: Ms. Rendon, You were recently hospitalized for flu-like symptoms and found to be + for Influenza A and also had a COPD exacerbation. Please see recommendations below regarding your discharge. 1. Please take a steroid taper as prescribed to you. Your first dose at home will be 03/23/2024. 2. Please take Doxycycline twice daily for the next 3 days. Your first dose at home will be this evening 03/22/2024. Please take with food to avoid GI upset. 3. Please take Tamiflu twice daily for the next 3 days. Your first dose will be this evening 03/22/2024. 4. Please use your nebulizer at home every 4 hours as needed for shortness of breath. 5. Please continue your scheduled inhalers as previously prescribed. 6. Please continue on the remainder of your medications. If you develop any worsening shortness of breath, cough, fevers, or chills please report to the ER for further evaluation. Sincerely, Kamla Hua PA-C Pending Studies at Discharge: No Stand-Alone Forms: [facility], Smoking Cessation Medications and DC Order Prescriptions: New doxycycline hyclate 100 mg Capsule 100 mg PO BID Qty: 7 0RF levalbuterol HCl 0.63 mg/3 mL Solution For Nebulization 0.63 mg NEB Q4R Qty: 72 0RF prednisone 10 mg tablet 10 mg PO DIRECTED Qty: 22 0RF Rx Instructions: Please take 4 tablets by mouth for 1 day followed by 3 tablets by mouth for 3 days followed by 2 tablets by mouth for 3 days followed by 1 tablet by mouth for 3 days. oseltamivir [Tamiflu] 30 mg capsule 30 mg PO BID Qty: 7 0RF Continued atorvastatin 80 mg Tablet 80 mg PO HS zinc acetate 50 mg (zinc) Capsule 50 mg PO QAM aspirin 81 mg Tablet,Delayed Release (Dr/Ec) 81 mg PO QAM cholecalciferol (vitamin D3) [Vitamin D3] 125 mcg (5,000 unit) Tablet 125 mcg PO QAM insulin aspart U-100 [Novolog U-100 Insulin aspart] 100 unit/mL Solution 1 sliding scale dose continuous subcutaneous infusion CONTINOUS Rx Instructions: via pump omeprazole 20 mg capsule,delayed release(DR/EC) 20 mg PO DAILY Qty: 1 0RF albuterol sulfate [Ventolin HFA] 90 mcg/actuation HFA aerosol inhaler 2 inh inhalation Q6H PRN (Reason: shortness of breath or wheezing) Qty: 6.7 0RF mirabegron [Myrbetriq] 25 mg Tablet Extended Release 24 Hr 25 mg PO DAILY fluticasone furoate-vilanterol [Breo Ellipta] 100-25 mcg/dose Blister With Device 1 inh INHALATION Q OTHER DAY Rx Instructions: pt just ran out Discontinued ipratropium-albuterol 0.5 mg-3 mg(2.5 mg base)/3 mL solution for nebulization 3 ml inhalation Q6H PRN (Reason: wheezing) Qty: 90 0RF Discharge Orders: Discharge Order (Routine); Ordered 03/22/24 Ordered By: Kamla Hua Admission Data Admit Date/Time: 03/21/24 01:25 Attending Provider: Jarrod Kellogg Admit Provider: Leyda Anaya Primary Care Provider: Isabela Ayers Other Providers: Leyda Anaya Other Interventions: Discharge Summary Assessment (RN) Last Done: 03/22/24 11:28 Hospital Stay Data Consultations 03/21/24 00:32 ED Decision to Admit Stat Pending Results Patient Have Any Pending Studies at Discharge: No Discharge Instructions Given to Patient (Per Discharging Provider) Ms. Rendon, Dave were recently hospitalized for flu-like symptoms and found to be + for Influenza A and also had a COPD exacerbation. Please see recommendations below regarding your discharge. 1. Please take a steroid taper as prescribed to you. Your first dose at home will be 03/23/2024. 2. Please take Doxycycline twice daily for the next 3 days. Your first dose at home will be this evening 03/22/2024. Please take with food to avoid GI upset. 3. Please take Tamiflu twice daily for the next 3 days. Your first dose will be this evening 03/22/2024. 4. Please use your nebulizer at home every 4 hours as needed for shortness of breath. 5. Please continue your scheduled inhalers as previously prescribed. 6. Please continue on the remainder of your medications. If you develop any worsening shortness of breath, cough, fevers, or chills please report to the ER for further evaluation. Sincerely, Kamla Hua PA-C Total Time Total Time Spent Total Time Spent (In Minutes): 40 Total Time Includes: Examination of the Patient, Discharge Planning, Medication Reconciliation and Communication With Other Providers Coding Level of Care Code 34830 INP/OBS DISCH >30 MIN Diagnoses Acute hypoxic respiratory failure J96.01 Influenza A J10.1
[2024-03-22 11:21] VITALS: PULSE 93; RESP 16; TEMP 97.9; O2SAT 91
[2024-03-22 11:29] VITALS: BP 138/64
== END 2024-03-22 12:22 | disposition home or self-care (01) ==
LOC: ED 22:07 → EDINP 22:07 → SUATTDRO 03-21 01:25 → 2N 03-21 02:25
DX: Z88.0 Allergy status to penicillin; E11.9 Type 2 diabetes mellitus without complications; Z88.8 Allergy status to other drugs, medicaments and biological substances; K21.9 Gastro-esophageal reflux disease without esophagitis; J44.1 Chronic obstructive pulmonary disease with (acute) exacerbation; R74.8 Abnormal levels of other serum enzymes; Z79.899 Other long term (current) drug therapy; J96.01 Acute respiratory failure with hypoxia; Z79.4 Long term (current) use of insulin; Z87.891 Personal history of nicotine dependence; E78.5 Hyperlipidemia, unspecified; Z79.82 Long term (current) use of aspirin; N32.89 Other specified disorders of bladder; J10.1 Influenza due to other identified influenza virus with other respiratory manifestations; R79.89 Other specified abnormal findings of blood chemistry